=== PATIENT | male | born 1985 | race Caucasian/White ===

== ENCOUNTER 2016-09-10 06:41 | Observation (INO) | payer MEDICAID ==
--- NOTE | 2016-09-10 06:51 | ERNOTE ---
<Cristiano Schwartz - Last Filed: 09/10/16 07:22> Psychological HPI - General Source: Reports: patient Exam Limitations: Reports: intoxication - Immun/Allergies/Home Medications Allergies/Adverse Reactions: Allergies codeine Adverse Reaction (Mild, Verified 04/19/16 07:41) Vomiting Home Medications: HOME MEDICATIONS Clonazepam [Klonopin] 2 mg PO TID PRN 03/24/12 [Last Taken 10/12/14] Omeprazole [Prilosec] 40 mg PO DAILY 06/25/15 [Last Taken Unknown] lamoTRIgine [Lamictal] 150 mg PO BID 06/25/15 [Last Taken Unknown] Amitriptyline HCl [Elavil] 25 mg PO HS 02/16/16 [Last Taken Unknown] OXcarbazepine [Trileptal] 1,200 mg PO DAILY 02/16/16 [Last Taken Unknown] Zolpidem Tartrate [Ambien] 10 mg PO HS #30 tablet 02/16/16 [Last Taken Unknown] metFORMIN HCL [Glucophage] 1,000 mg PO BID #60 tablet 02/16/16 [Last Taken Unknown] Clindamycin HCl [Cleocin HCl] 300 mg PO TID #30 tab 04/19/16 [Last Taken Unknown ] Naproxen [Naprosyn] 500 mg PO BID PRN #20 tablet 04/19/16 [Last Taken Unknown] Ziprasidone HCl [Geodon] 60 mg PO BID 09/10/16 [Last Taken Unknown] - History of Present Illness Narrative: Pt brought in by EMS with report of decreased mental status due to overdose of medication mixed with excessive ETOH intake. Pt refuses to admit he was trying to harm himself Time Seen by Provider: 09/10/16 06:45 Arrived by: Reports: ambulance Onset/duration: Reports: gradual onset Intent: Reports: wants to escape Mechanism: Reports: overdose Situational Problems: Reports: significant other, other - children Associated Symptoms: Reports: depressed, angry "Rescue Factor" How did act come to attention?: Pt called law enforcement Review of Systems - Review of Systems Constitutional: Absent: recent illness EYE: Present: no symptoms reported ENT: Present: no symptoms reported Respiratory: Absent: shortness of breath Cardiology: Absent: chest pain Gastrointestinal/Abdominal: Present: nausea, vomiting Genitourinary: Present: no symptoms reported Musculoskeletal: Present: no symptoms reported Skin: Present: no symptoms reported Neurological: Present: no symptoms reported Endocrine: Present: no symptoms reported Hematologic/Lymphatic: Present: no symptoms reported Psych: Present: See HPI, depressed, emotional problems - Patient's Past Medical History Patient History - Medical: Alcohol Abuse, Bipolar, Diabetes Type 2, GERD, Obesity, Other - pt has multiple visits for pain Patient History - Cardiac/Respiratory: No pertinent hx Patient History - Cancer: No Hx of Cancer Patient History - Surgical Procedures: Appendectomy, EGD, T & A, Vasectomy, Other Patient History - Other: None - Family History Mother Family History - Medical: Bipolar Father Family History - Medical: Arthritis Sister Family History - Medical: Bipolar - Social History Living Situations: home Abuse History: No History of abuse Psych History: Hx of Bipolar Disorder Alcohol Use: occasionally Drug Use: none, other - Immunizations Immunizations Up to Date: Yes Hx Pneumococcal Vaccination: No History of Influenza Vaccine: Yes Physical Exam - Physical Exam General Appearance: Present: wd/wn, alert, irritable Eye Exam: Normal inspection: bilateral, PERRL: bilateral Ears, Nose, Throat: Present: normal ENT inspection Neck: Present: normal inspection, nontender Respiratory: Present: no respiratory distress, normal breath sounds, lungs clear Cardiovascular/Chest: Present: regular rate, rhythm, no murmur, normal peripheral pulses Gastrointestinal/Abdominal: Present: normal bowel sounds, tenderness - RUQ Back Exam: Present: normal range of motion Extremity Exam: Present: normal inspection, non-tender, normal range of motion, no edema Neurological Exam: Present: alert, other - intoxicated Skin Exam: Present: normal color, warm/dry Lymphatic Exam: Present: no adenopathy ED Progress - Progress/Reassessment Progress:: Unchanged Progress Note-Subjective: 09/10/16 07:48 Discussed the patients case with Judge Call. Explained that I feel the patient is a danger to himself and seriously mentally impaired. He agrees with a 48 hour hold. - Transfer of Care Physician Sign Out: Cristiano Schwartz Receiving Physician: Tito Power Pending Results: Labs Expected Disposition: Transfer Departure Clinical Impression: Overdose of benzodiazepine Qualifiers: Encounter type: initial encounter Injury intent: intentional self-harm Qualified Code(s): T42.4X2A - Poisoning by benzodiazepines, intentional self- harm, initial encounter Alcohol intoxication Qualifiers: Complication of substance-induced condition: uncomplicated Qualified Code(s): F10.120 - Alcohol abuse with intoxication, uncomplicated - Departure Disposition: [facility] Condition: Good <Tito Power - Last Filed: 09/10/16 09:11> Psychological HPI - Date Date of Service: 09/10/16 - General Source: Reports: patient, RN/MD - History of Present Illness Prior Treament: Denies: recently seen Physical Exam - Physical Exam General Appearance: Present: wd/wn, alert, irritable Eye Exam: Normal inspection: bilateral, PERRL: bilateral Ears, Nose, Throat: Present: normal ENT inspection Neck: Present: normal inspection, nontender Respiratory: Present: no respiratory distress Cardiovascular/Chest: Present: regular rate, rhythm. Absent: JVD Gastrointestinal/Abdominal: Present: normal bowel sounds Back Exam: Present: normal inspection, normal range of motion, no CVA tenderness Extremity Exam: Present: normal inspection Neurological Exam: Present: jacquard loom heddles tier II-XII nml as tested Skin Exam: Present: normal color Lymphatic Exam: Present: no adenopathy ED Progress - Date and Time Seen: Date and Time: 09/10/16 08:54 GCS: 15/15 Patient at the moment is calm. Patient has been commited by Core Carrier. Patient's case has been presented to Hospitalist for admission. At this point Hospitalist COOK HELPER DESSERT will consult case with Attending prior accepting case. I was informed by Nursing that ICU bed is available at [facility] at this point. Patient is in no distress. Psychiatric Facility has requested a 24hrs Observation period on a Medical [place] prior to give any intervention. 09/10/16 09:11 Hospitalist has accepted case in to the ICU. Patient has been informed of all developments. - Results and Orders Patient's Lab Results:: I have reviewed the patient's lab results. Results and Orders: CBC: WNL CMP: WNL Toxi: Positive Alcohol: Positive UA: Negative THS: Normal - Vital Signs Patient's Vital Signs:: I have reviewed the patient's vital signs. Vital Signs: Vital Signs 09/10/16 09/10/16 09/10/16 06:46 06:55 07:02 Temperature 37.1 C Pulse Rate 77 79 82 Respiratory 14 18 Rate Blood Pressure 103/76 108/75 O2 Sat by Pulse 98 100 Oximetry 09/10/16 07:45 Temperature Pulse Rate 82 Respiratory 19 Rate Blood Pressure 117/53 O2 Sat by Pulse 100 Oximetry - EKG EKG: NSR EKG read: Interp. by me EKG Comments: HR: 72, No ST Elevation, QT/QTc: Normal Plan - Plan Plan: Given Medical Observation and get cleared for Mental Health evaluation.
[2016-09-10 07:00] LABS: Hematocrit 39.4 % (42.0-52.0); Hemoglobin 13.4 gm/dL (13.5-18.0); Mean Cell Volume 84.4 fl (78-100); Mean Corpuscular Hemoglobin 28.7 pg (27-31); Mean Platelet Volume 9.6 fl (6.0-9.5); Neutrophil # 3.8 K/mm3 (1.3-6.0); Platelet Count 305 K/mm3 (150-450); Red Blood Count 4.67 M/mm3 (4.7-6.0); Red Cell Distribution Width 13.9 % (11.5-14.0); White Blood Count 7.8 K/mm3 (4.0-10.5)
--- OUTSIDE RECORDS SUMMARY | 2016-09-10 07:12 | XMS REPORT | Continuity of Care Document ---
:1985 Author Organization [facility] [employer] [facility] [place] [address] Care Team Providers Name Role Phone Phys, Not Primary Care Provider Unavailable Source Comments This disclosure is being made pursuant to the [employer] program and maynot contain all information available regarding this patient.[employer] [facility] Active Allergies and Adverse Reactions No Known Allergies Current Medications Be aware that medications may not be up to date as of this document. Alwaysverify current medications with the patient. Prescription Sig. Disp. Refills Start Date End Date Status clonazePAM (KLONOPIN) Take 1 tablet by 60 tablet 0 01/18/2012 Active 1 MG tablet mouth 2 (two) times daily. Indications: Feeling Anxious QUEtiapine Fumarate Take 2 tablets by 60 tablet 0 01/18/2012 Active (SEROQUEL) 300 MG mouth nightly. tablet lamoTRIgine (LAMICTAL) Take 1 tablet by 30 tablet 0 01/18/2012 Active 150 MG tablet mouth daily. Indications: Mood Disorder Active Problems Not on file Social History Tobacco Use Types Packs/Day Years Used Date Current Every Day Smoker 0.5 15 Tobacco Cessation:Ready to Quit: No; Counseling Given: Yes Comments: Alcohol Use Drinks/Week oz/Week Comments Yes claims he drank 13 beers last evening. Last Filed Vital Signs Vital Sign Reading Time Taken Blood Pressure 115/83 01/18/2012 8:01 AM CDT Pulse 80 01/18/2012 8:01 AM CDT Temperature 36 C (96.8 F) 01/18/2012 8:00 AM CDT Respiratory Rate 18 01/18/2012 8:00 AM CDT Height 1.78 m (5' 10.08") 01/16/2012 4:29 AM CDT Weight 115 kg (253 lb 8.5 oz) 01/16/2012 4:29 AM CDT Body Mass Index 36.3 01/16/2012 4:29 AM CDT Oxygen Saturation 99% 01/16/2012 4:29 AM CDT Plan of Care Health Maintenance Due Date Last Done Comments Tetanus/Pertussis (1 - Tdap) 2004 Retired-INFLUENZA VACCINE 01/21/2016 Results from Last 3 Months Not on file
--- OUTSIDE RECORDS SUMMARY | 2016-09-10 07:13 | XMS REPORT | Continuity of Care Document ---
:1985 Author Organization [facility] ([facility]) Address [address] [place] [address] Phone [phone] Care Team Providers Name Role Phone Adan Niño Primary Care Provider [phone] Source Comments This disclosure is being made pursuant to the Care Everywhere program, applicable federal and state laws, and may not contain all informaitonavailable regarding this patient.[facility] ([facility]) Active Allergies and Adverse Reactions Allergen Noted Date Severity Reactions Comments Codeine Sulfate 10/29/2015 Nausea & Vomiting Current Medications Prescription Sig. Disp. Refills Start Date End Date Status clonazePAM 1 mg tablet take 1 tablet (1 Active mg) by oral route 3 times per day as needed zolpiDEM 10 mg tablet take 1 tablet (10 Active mg) by oral route once daily at bedtime lamoTRIgine 150 mg tablet take 1 tablet (150 Active mg) by oral route once daily HYDROcodone-acetaminophen take 1 tablet by 03/04/2014 Active 5-325 mg per tablet oral route twice daily as needed metFORMIN 500 mg tablet take 2 tablets Active (1,000 mg) by oral route 2 times per day with morning and evening meals metoclopramide 10 mg take 1 tablet (12/07/2008 Active tablet mg) by oral route every 4 hours as needed for headache, and nausea lansoprazole 30 mg capsule take 1 capsule (30 Active mg) by oral route once daily before a meal omeprazole 40 mg enteric take 1 capsule (04/29/2014 Active coated capsule mg) by oral route once daily before a meal ziprasidone 40 mg capsule Take 40 mg by Active mouth 2 times daily. lisinopril 40 mg tablet Take 40 mg by Active mouth daily. OXcarbazepine (OXTELLAR Take 300 mg by Active XR) 300 mg XR tablet mouth daily. pregabalin (LYRICA) 300 mg Take 300 mg by Active capsule mouth daily. Active Problems Problem Noted Date Left shoulder pain 10/29/2015 Social History Tobacco Use Types Packs/Day Years Used Date Current Some Day Smoker Cigarettes 0.5 15 Smokeless Tobacco: Former User Chew, Snuff Alcohol Use Drinks/Week oz/Week Comments Yes 6 Cans of beer Last Filed Vital Signs Vital Sign Reading Time Taken Blood Pressure 133/75 10/29/2015 10:46 AM CDT Pulse 96 10/29/2015 10:46 AM CDT Temperature 36.7 C (98.1 F) 10/29/2015 10:46 AM CDT Respiratory Rate - - Height 1.753 m (5' 9") 10/29/2015 10:46 AM CDT Weight 139.9 kg (308 lb 6.8 oz) 10/29/2015 10:46 AM CDT Body Mass Index 45.53 10/29/2015 10:46 AM CDT Oxygen Saturation - - Plan of Care Health Maintenance Due Date Last Done Comments Hepatitis B Vaccine (1 of 3 - Primary Series) 1985 Tdap Vaccine 1996 Lipid Disorder Screening 09/11/2003 MMR Vaccine 09/11/2003 Td Vaccine 09/11/2003 Varicella Vaccine (1 of 2 - Adult - No Evidence of 09/11/2003 Immunity) Pneumococcal Vaccine (1 of 1 - PPSV23) 2004 Influenza Vaccine: Seasonal (#1) 12/21/2015 Results from Last 3 Months Not on file
[2016-09-10 07:22] LABS: Urine Bilirubin Negative (NEGATIVE); Urine Blood Negative /ul (NEGATIVE); Urine Ketone Negative (NEGATIVE); Urine Nitrite Negative (NEGATIVE); Urine Protein Negative (NEGATIVE); Urine Specific Gravity <=1.005 SP.GR. (1.005-1.030); Urine Urobilinogen Normal (NORMAL); Urine pH 5.5 pH (5.0-7.0)
[2016-09-10 07:22] LABS: ALT 35 U/L (19-67); AST 19 U/L (0-48); Albumin * 3.4 gm/dl (3.4-5.0); Alkaline Phosphatase * 70 U/L (50-170); Anion Gap 14.4 mmol/L (6.8-13.8); BUN/Creatinine Ratio 10.2 (9.0-21.6); Bilirubin, Total 0.2 mg/dL (0.0-1.1); Blood Urea Nitrogen 9 mg/dL (6-23); Ca. Corrected For Albumin 8.9 mg/dL (8.4-10.2); Calcium * 8.7 mg/dL (7.9-10.9); Carbon Dioxide 24.4 mmol/L (24-32.6); Chloride 107 mmol/L (97-106); Glucose * 72 mg/dL (70-110); Potassium 3.8 mmol/L (3.4-4.6); Salicylate 2.8 mg/dL (2.8-20.0); Sodium 142 mmol/L (132-142); TSH * 0.944 uIU/mL (0.358-3.74); Total Protein 7.1 gm/dL (6.2-8.2)
[2016-09-10 07:31] LABS: Urine Appearance Clear; Urine Bacteria None Seen; Urine Color Yellow; Urine RBC None Seen /hpf (0-5); Urine WBC None Seen /hpf (0-5)
[2016-09-10 07:37] LABS: Cocaine Ur Negative (NEGATIVE); Urine Barbiturate Negative (NEGATIVE); Urine Benzodiazepines Positive (NEGATIVE); Urine Opiates Negative (NEGATIVE); Urine PCP Negative (NEGATIVE); Urine THC Positive (NEGATIVE)
--- OUTSIDE RECORDS SUMMARY | 2016-09-10 08:55 | XMS REPORT | Continuity of Care Document ---
:1985 Author Organization [employer] [place] [address] Care Team Providers Name Role Phone Phys, Not Primary Care Provider Unavailable Source Comments This disclosure is being made pursuant to the [employer] program and maynot contain all information available regarding this patient.[employer] Active Allergies and Adverse Reactions No Known [...]
--- OUTSIDE RECORDS SUMMARY | 2016-09-10 08:55 | XMS REPORT | Continuity of Care Document ---
:1985 Author Organization [facility] ([facility]) Address [address] [place] [address] Phone [phone] Care Team Providers Name Role Phone Adan Niño Primary Care Provider [phone] Source Comments This disclosure is being made pursuant to the Care Everywhere program, applicable federal and state laws, and may not contain all informaitonavailable regarding this patient.[facility] ([facility]) Active Allergies and Adverse Reactions [...]
[2016-09-10] MEDS ORDERED: LORazepam 2 MG/ML DISP.SYRIN IV ONE (18:26)
[2016-09-10] MEDS ORDERED: LORazepam 2 MG/ML DISP.SYRIN IM PRN ×2 (18:27→18:30)
[2016-09-10] MEDS ORDERED: LORazepam 2 MG/ML DISP.SYRIN IV PRN (18:29)
[2016-09-10] MEDS ORDERED: ACETAMINOPHEN 325 MG TABLET PO PRN (18:30)
[2016-09-10] MEDS ORDERED: HALOPERIDOL LACTATE 5 MG/ML VIAL IM ONE (18:50)
--- NOTE | 2016-09-10 19:04 | HP ---
Chief Complaint - Chief Complaint Date of Service: 09/10/16 Time of Service: 13:35 Chief Complaint: suicide attempt; 48 hour hold; drug abuse History of Present Illness: Jonn is a 31 year old male with a long standing psychiatric history who was taken to the ER after a suicide attempt at home. Patient took an unknown amount of klonopin and "ice". patient was also drunk in the emergency room and drug toxocolgy was also positive for THC. ERP obtained a 48 hour hold on the patient was he was deemed a danger to himself and others. ERP indicated that the psychiatric facility would like medical clearance and 24 hour evaluation prior to accepting the patient. At the time of my exam, patient is sleeping and unwilling to answer any of my questions. - Patient's Past Medical History Patient History - Medical: Alcohol Abuse, Bipolar, Diabetes Type 2, GERD, Obesity, Other Patient History - Cardiac/Respiratory: Hyperlipidemia Patient History - Cancer: No Hx of Cancer Patient History - Surgical Procedures: Appendectomy, EGD, T & A, Vasectomy, Other Patient History - Other: None - Family History Mother Family History - Medical: Bipolar Family History - Cardiac/Respiratory: History Unknown Family History - Cancer: History Unknown Father Family History - Medical: Arthritis Family History - Cardiac/Respiratory: History Unknown Family History - Cancer: History Unknown Sister Family History - Medical: Bipolar Family History - Cardiac/Respiratory: History Unknown Family History - Cancer: History Unknown - Social History Living Situations: spouse Abuse History: No History of abuse Psych History: Hx of Bipolar Disorder Smoking Status: Current every day smoker Have you smoked in the past 12 months: Yes Do you dip or chew tobacco: No Patient requests Smoking Cessation Consult: No Initiate information on Smoking Cessation: No Alcohol Use: occasionally Drug Use: benzodiazepine, marijuana, other - "ice" - Immunizations Immunizations Up to Date: Yes Hx Pneumococcal Vaccination: No History of Influenza Vaccine: Yes Review Of Systems (GEN) - Review of Systems Generalized/Overall Review: Present: Fatigue - unable to obtain ROS due to patient condition. Allergies/Adverse Reactions: Allergies Allergy/AdvReac Type Severity Reaction Status Date / Time codeine AdvReac Mild Vomiting Verified 04/19/16 07:41 Home Medications: HOME MEDICATIONS Ziprasidone HCl [Geodon] 60 mg PO BID 09/10/16 [Last Taken Unknown] Albuterol Sulfate [Proair Hfa] 8.5 gm IH PRN PRN 09/11/16 [Last Taken Unknown] Clonazepam 2 mg PO TID PRN 09/11/16 [Last Taken Unknown] Lisinopril 09/11/16 [Last Taken Unknown] OXcarbazepine [Oxtellar Xr] 600 mg PO BID 09/11/16 [Last Taken Unknown] Omeprazole [Prilosec] 20 mg PO DAILY 09/11/16 [Last Taken Unknown] Zolpidem Tartrate [Ambien] 10 mg PO HS 09/11/16 [Last Taken Unknown] metFORMIN HCL [Glucophage] 1,000 mg PO BIDWM 09/11/16 [Last Taken Unknown] Exam - Exam Vital Signs: Vital Signs - Last Taken Temp 36.7 C 09/10/16 14:00 Pulse 80 09/10/16 14:00 Resp 14 09/10/16 14:00 BP 118/63 09/10/16 14:00 Pulse Ox 96 09/10/16 14:00 Constitutional: Present: Lethargic, Somnolent, Other - sleeping and maintaining his airway ENT Exam: Present: moist mucous membranes Eye Exam: bilateral eye: normal inspection Neck: Present: supple Back Exam: Present: normal inspection Breasts: Present: Exam deferred Respiratory: Present: lungs clear, normal breath sounds, no respiratory distress Cardiovascular/Chest: Present: normal peripheral pulses, regular rate, rhythm, no chest tenderness Peripheral Pulses: dorsalis-pedis (R): 2+, dorsalis-pedis (L): 2+, radial (R): 2 +, radial (L): 2+ Abdomen: Present: soft, nontender, nondistended /Rectal: Present: Exam deferred Extremity: Present: non-tender, normal inspection, no pedal edema Skin Exam: Present: normal color, warm/dry, no cyanosis Diagnostic Studies: Laboratory Results WBC 7.8 K/mm3 (4.0-10.5) 09/10/16 06:55 RBC 4.67 M/mm3 (4.7-6.0) L 09/10/16 06:55 Hgb 13.4 gm/dL (13.5-18.0) L 09/10/16 06:55 Hct 39.4 % (42.0-52.0) L 09/10/16 06:55 MCV 84.4 fl (78-100) 09/10/16 06:55 MCH 28.7 pg (27-31) 09/10/16 06:55 MCHC 34.0 g/dl (32-36) 09/10/16 06:55 RDW 13.9 % (11.5-14.0) 09/10/16 06:55 Plt Count 305 K/mm3 (150-450) 09/10/16 06:55 MPV 9.6 fl (6.0-9.5) H 09/10/16 06:55 Immature Gran % (Auto) 0.30 % (0.001-0.429) 09/10/16 06:55 Immature Gran # (Auto) 0.02 K/mm3 (0.000-0.0310) 09/10/16 06:55 Neutrophils % 49.0 % (42-75.0) 09/10/16 06:55 Lymphocytes % 38.3 % (20-51) 09/10/16 06:55 Monocytes % 8.4 % (0.0-9) 09/10/16 06:55 Eosinophils % 3.4 % (0.0-3.0) H 09/10/16 06:55 Basophils % 0.6 % (0.0-1.0) 09/10/16 06:55 Nucleated RBC % 0.0 k/mm3 (0-1) 09/10/16 06:55 Neutrophils # 3.8 K/mm3 (1.3-6.0) 09/10/16 06:55 Lymphocytes # 3.0 k/mm3 (1.5-3.5) 09/10/16 06:55 Monocytes # 0.7 k/mm3 (0.0-1.0) 09/10/16 06:55 Eosinophils # 0.3 k/mm3 (0.0-0.7) 09/10/16 06:55 Absolute Basophils 0.1 k/mm3 (0.0-0.1) 09/10/16 06:55 Sodium 142 mmol/L (132-142) 09/10/16 06:55 Plasma Sodium 142 mmol/L (130-142) 09/10/16 06:55 Potassium 3.8 mmol/L (3.4-4.6) 09/10/16 06:55 Chloride 107 mmol/L (97-106) H 09/10/16 06:55 Carbon Dioxide 24.4 mmol/L (24-32.6) 09/10/16 06:55 Anion Gap 14.4 mmol/L (6.8-13.8) H 09/10/16 06:55 BUN 9 mg/dL (6-23) 09/10/16 06:55 Creatinine 0.88 mg/dL (0.4-1.4) 09/10/16 06:55 Est GFR (Non-Af Amer) 107 mL/min (60-130) 09/10/16 06:55 BUN/Creatinine Ratio 10.2 (9.0-21.6) 09/10/16 06:55 Random Glucose 72 mg/dL (70-110) 09/10/16 06:55 Calcium 8.7 mg/dL (7.9-10.9) 09/10/16 06:55 Calcium Adj for Albumin 8.9 mg/dL (8.4-10.2) 09/10/16 06:55 Total Bilirubin 0.2 mg/dL (0.0-1.1) 09/10/16 06:55 AST 19 U/L (0-48) 09/10/16 06:55 ALT 35 U/L (19-67) 09/10/16 06:55 Alkaline Phosphatase 70 U/L (50-170) 09/10/16 06:55 Total Protein 7.1 gm/dL (6.2-8.2) 09/10/16 06:55 Albumin 3.4 gm/dl (3.4-5.0) 09/10/16 06:55 TSH 0.944 uIU/mL (0.358-3.74) 09/10/16 06:55 Urine Color Yellow 09/10/16 07:15 Urine Appearance Clear 09/10/16 07:15 Urine pH 5.5 pH (5.0-7.0) 09/10/16 07:15 Ur Specific [place] <=1.005 SP.GR. (1.005-1.030) 09/10/16 07:15 Urine Protein Negative mg/dL (NEGATIVE) 09/10/16 07:15 Urine Glucose (UA) Negative mg/dL (NEGATIVE) 09/10/16 07:15 Urine Ketones Negative mg/dL (NEGATIVE) 09/10/16 07:15 Urine Blood Negative /ul (NEGATIVE) 09/10/16 07:15 Urine Nitrate Negative (NEGATIVE) 09/10/16 07:15 Urine Bilirubin Negative mg/dl (NEGATIVE) 09/10/16 07:15 Urine Urobilinogen Normal EU/dl (NORMAL) 09/10/16 07:15 Ur Leukocyte Esterase Negative /ul (NEGATIVE) 09/10/16 07:15 Urine RBC None seen /hpf (0-5) 09/10/16 07:15 Urine WBC None seen /hpf (0-5) 09/10/16 07:15 Ur Epithelial Cells 0-5 /hpf (0-5) 09/10/16 07:15 Urine Bacteria None seen (NONE) 09/10/16 07:15 Urine Culture Comments No culture indicated 09/10/16 07:15 Salicylates 2.8 mg/dL (2.8-20.0) 09/10/16 06:55 Urine Opiates Screen Negative (NEGATIVE) 09/10/16 07:15 Acetaminophen Less than 0.2 mcg/mL (10.0-30.0) L 09/10/16 06:55 Barbiturate Screen Negative (NEGATIVE) 09/10/16 07:15 Ur Phencyclidine Scrn Negative (NEGATIVE) 09/10/16 07:15 Urine Amphetamine Positive (NEGATIVE) H 09/10/16 07:15 U Benzodiazepines Scrn Positive (NEGATIVE) H 09/10/16 07:15 Urine Cocaine Screen Negative (NEGATIVE) 09/10/16 07:15 Urine Marijuana (THC) Positive (NEGATIVE) H 09/10/16 07:15 Ethyl Alcohol 71.0 mg/dL (0.0-10.0) H 09/10/16 06:55 Assessment/Plan - Narrative Narrative: Overdose of benzo - watch O2 sats, maintain patient's airway - will need at least 24 hours to get out of patient's system. - Jessika Cai to consult on patient in the am. - 48 hour hold currently. Drug Abuse - drug screen positive. - has been seen / heard verbally aggressive and threatening towards significant other. - also has been verbally aggressive towards staff at times. - likely need inpatient rehab. Etoh intox - patient admitted to significant "lauren dee" use with benzo overdose - will augment action of benzo - watch O2 sats, maintain patient's airway Due to patient's high likelihood to possible harm himself and/or others, I agree with the 48 hour hold. In addition, he needs to be 1:1 observation for the safety of the patient and staff. - Assessment/Plan (1) Overdose of benzodiazepine Problem: Acute Qualifiers: Encounter type: initial encounter Injury intent: intentional self-harm Qualified Code(s): T42.4X2A - Poisoning by benzodiazepines, intentional self- harm, initial encounter (2) Drug abuse Problem: Acute (3) Alcohol intoxication Problem: Acute Qualifiers: Complication of substance-induced condition: with unspecified complication Qualified Code(s): F10.129 - Alcohol abuse with intoxication, unspecified
[2016-09-10] MEDS ORDERED: PANTOPRAZOLE SODIUM 40 MG TABLET.EC PO ONE (20:00)
[2016-09-10] MEDS ORDERED: ZIPRASIDONE HCL 60 MG PO SCH (21:00)
[2016-09-10] MEDS ORDERED: ZIPRASIDONE PO SCH ×2 (21:00)
[2016-09-11] MEDS ORDERED: PANTOPRAZOLE SODIUM 40 MG TABLET.EC PO SCH (07:00)
[2016-09-11] MEDS ORDERED: ZIPRASIDONE PO SCH ×2 (09:00)
--- NOTE | 2016-09-11 13:49 | PN ---
Subjective - Date and Time Seen Date: 09/11/16 Time: 11:02 Subjective Narrative: sleeping. no distress. airway and oxygen sats maintained. no aggressive behavior this am. pt unwilling to wake up to answer questions Objective - Review of Systems Generalized/Overall Review: Reports: Fatigue - unable to obtain ROS due to patient condition. - Vitals Vitals: Last Vital Signs Temp 36.4 C L 09/11/16 10:09 Pulse 66 09/11/16 11:53 Resp 14 09/11/16 10:09 BP 133/67 09/11/16 10:09 Pulse Ox 97 09/11/16 10:09 - Exam Constitutional: Present: Lethargic, Somnolent, Looks Older than stated age ENT Exam: Present: hearing grossly normal Neck: Present: supple Breasts: Present: Exam deferred Respiratory: Present: lungs clear, normal breath sounds, no respiratory distress Cardiovascular/Chest: Present: normal peripheral pulses, regular rate, rhythm Abdomen: Present: soft, nontender, nondistended /Rectal: Present: Exam deferred Extremity: Present: non-tender, normal inspection, no pedal edema Skin Exam: Present: normal color, warm/dry, no cyanosis Assessment/Plan Plan Narrative: Overdose of benzo - watch O2 sats, maintain patient's airway - await consult by Jessika Cai for recommendations - 48 hour hold currently. Drug Abuse - drug screen positive. - likely need inpatient rehab. Etoh intox - watch O2 sats, maintain patient's airway - pt very sleepy but awakens to voice. Due to patient's high likelihood to possible harm himself and/or others, I agree with the 48 hour hold. In addition, he needs to be 1:1 observation for the safety of the patient and staff. - Problems/Diagnosis (1) Overdose of benzodiazepine Problem: Acute Qualifiers: Encounter type: initial encounter Injury intent: intentional self-harm Qualified Code(s): T42.4X2A - Poisoning by benzodiazepines, intentional self- harm, initial encounter (2) Drug abuse Problem: Acute (3) Alcohol intoxication Problem: Acute Qualifiers: Complication of substance-induced condition: with unspecified complication Qualified Code(s): F10.129 - Alcohol abuse with intoxication, unspecified
[2016-09-11 14:01] VITALS: BP 130/62
--- NOTE | 2016-09-11 16:22 | CONS ---
[facility] - General Date of Service: 09/11/16 Narrative: Psychiatry consult Source: patient, family Exam Limitations: no limitations - History of Present Illness Initial Comments: Patient states that depression has been getting worse. Was missing youngest children that he does not have custody of. Was intoxicated and got in an argument with a family member and took a number of clonazepam in an attempt to overdose. Timing/Duration: getting worse Severity: moderate Modifying Factors - (Improves): Reports: medication - Not currently taking Geodon, only on a mood stabilizer. Allergies/Adverse Reactions: Allergies codeine Adverse Reaction (Mild, Verified 04/19/16 07:41) Vomiting Home Medications: Home Medications Medication Instructions Recorded Last Taken Albuterol Sulfate [Proair Hfa] 8.5 gm IH PRN PRN 09/11/16 Unknown Clonazepam 2 mg PO TID PRN 09/11/16 Unknown Lisinopril [Prinivil] 10 mg PO DAILY 09/11/16 Unknown OXcarbazepine [Oxtellar Xr] 600 mg PO BID 09/11/16 Unknown Omeprazole [Prilosec] 20 mg PO DAILY 09/11/16 Unknown Zolpidem Tartrate [Ambien] 10 mg PO HS 09/11/16 Unknown metFORMIN HCL [Glucophage] 1,000 mg PO BIDWM 09/11/16 Unknown - Patient's Past Medical History Patient History - Medical: Alcohol Abuse, Bipolar, Diabetes Type 2, GERD, Obesity, Other Patient History - Cardiac/Respiratory: Hyperlipidemia Patient History - Cancer: No Hx of Cancer Patient History - Surgical Procedures: Appendectomy, EGD, T & A, Vasectomy, Other Patient History - Other: None - Family History Mother Family History - Medical: Bipolar Family History - Cardiac/Respiratory: History Unknown Family History - Cancer: History Unknown Father Family History - Medical: Arthritis Family History - Cardiac/Respiratory: History Unknown Family History - Cancer: History Unknown Sister Family History - Medical: Bipolar Family History - Cardiac/Respiratory: History Unknown Family History - Cancer: History Unknown - Social History Living Situations: spouse Abuse History: No History of abuse Psych History: Hx of Bipolar Disorder Smoking Status: Current every day smoker Have you smoked in the past 12 months: Yes Do you dip or chew tobacco: No Patient requests Smoking Cessation Consult: No Initiate information on Smoking Cessation: No Alcohol Use: occasionally Drug Use: benzodiazepine, marijuana, other - "ice" - Immunizations Immunizations Up to Date: Yes Hx Pneumococcal Vaccination: No History of Influenza Vaccine: Yes Procedures ANESTH INJECT-SPIN CANAL (06/24/09) APPLICATION OF SPLINT (07/10/08) CLOSURE SKIN & SUBCUTANEOUS NEC (04/07/12) DRESSING OF WOUND NEC (03/15/10) ENDOSCOPIC CONTROL OF GASTRIC OR DUODENAL BLEEDING (12/18/04) ESOPHAGOGASTRODUODENOSCOPY [EGD] W/CLOSED BIOPSY (01/18/15) EXCISION OF LARGE INTESTINE, ENDO, DIAGN (06/26/15) EXCISION OF PILONID CYST (01/02/09) EXCISION OF STOMACH, PYLORUS, ENDO, DIAGN (06/26/15) HEMORRHOID PROCEDURE NEC (03/24/12) INCISION PILONIDAL SINUS (12/15/05) INJECT STEROID (06/24/09) LAPAROSCOP APPENDECTOMY (10/15/09) SPINAL CANAL INJECT NEC (06/24/09) VASECTOMY (07/02/14) Medications - Medications Current Medications: Current Medications Pantoprazole Sodium (Protonix) 40 mg PO DAILY@0700 [facility] Stop: 10/11/16 07:01 Last Admin: 09/11/16 07:13 Dose: 40 mg Ziprasidone 20 mg/ Ziprasidone (40 mg) 60 mg PO QAM [facility] Stop: 10/11/16 09:01 Last Admin: 09/11/16 08:44 Dose: 60 mg Review of Systems - Review of Systems Neurological: Present: Depressed, Emotional Problems Physical Examination - Exam Narrative: Patient states that he was intoxicated and took clonazepam in an attempt to overdose. Mood is becoming more depressed. He has not been taking Geodon, only Trileptal, Clonazepam, and Ambien for sleep. Intermittent anger. Patient denies any suicidal ideation or intent. He no longer poses a threat to himself and is cleared for discharge. Patient is to call psychiatry office tomorrow to set up a follow up appointment. Vital Signs: Vital Signs - Last Taken Temp 36.7 C 09/11/16 13:59 Pulse 64 09/11/16 13:59 Resp 14 09/11/16 13:59 BP 130/62 09/11/16 13:59 Pulse Ox 94 09/11/16 13:59 O2 Oxygen Delivery Method Room Air Constitutional: Present: Alert, Oriented x3, Cooperative Neurologic: Present: alert, normal mood/affect, oriented x 3, depressed affect Appearance: Present: appropriate appearance, appropriate insight, no memory impairment Eye contact: Present: cooperative, good eye contact, normal speech Thoughts: Present: normal thought pattern, no apparent hallucination - Continue previous home medications. He is to call psychiatry clinic tomorrow to set up a follow up appointment. - Assessments/Findings (1) Overdose of benzodiazepine Problem: Acute Qualifiers: Encounter type: initial encounter Injury intent: intentional self-harm Qualified Code(s): T42.4X2A - Poisoning by benzodiazepines, intentional self- harm, initial encounter
--- NOTE | 2016-09-11 16:51 | DS ---
(1) Overdose of benzodiazepine Problem: Acute Qualifiers: Encounter type: initial encounter Injury intent: intentional self-harm Qualified Code(s): T42.4X2A - Poisoning by benzodiazepines, intentional self- harm, initial encounter (2) Drug abuse Problem: Acute (3) Alcohol intoxication Problem: Acute Qualifiers: Complication of substance-induced condition: with unspecified complication Qualified Code(s): F10.929 - Alcohol use, unspecified with intoxication, unspecified Description of Stay: Date of admission: 09/10/16 Date of discharge: 09/11/16 Description of Stay: 09/10/16 paola is a 31 year old male with a long psychiatric history who attempted suicide by taking an unknown amount of klonopin, doing "ice", drinking etoh. presented to ER intoxicated and danger to self and other. 48 hour hold obtained by ERP. admitted to SCU to monitor pt's safety and airway. 09/11/16. pt medically stable overnight. alexis jackson with psychiatry saw patient and cleared him for discharge. ordered obtained from paddock judge to stop the 48 hour hold. pt discharged to home. Procedures Performed: none Discharge Disposition: Home self care Disposition: Home self-care Condition: Undetermined Discharge Activity: Activity as tolerated Discharge Diet: General/regular food Consultation Done:: Alexis Jackson Problem Oriented Discharge Instructions to Patient/Family: Substance Use Disorder, Drug Overdose Additional Patient Instructions (free text): Call Alexis Jackson's office on monday for a follow up appointment. You will need to follow up with her for refills of your medications. Follow up with primary care physician in 1 week. If you feel a need to harm your self or others, call 911 or go to the nearest ER. Complete Home Medications List: Complete Home Medication List: Acetaminophen [Tylenol] 650 mg PO QID PRN #0 tablet 09/11/16 Albuterol Sulfate [Proair Hfa] 8.5 gm IH PRN PRN 09/11/16 Clonazepam 2 mg PO TID PRN 09/11/16 Lisinopril [Prinivil] 10 mg PO DAILY 09/11/16 OXcarbazepine [Oxtellar Xr] 600 mg PO BID 09/11/16 Omeprazole [Prilosec] 20 mg PO DAILY 09/11/16 Ziprasidone HCl [Geodon] 60 mg PO QAM capsule 09/11/16 Zolpidem Tartrate [Ambien] 10 mg PO HS 09/11/16 metFORMIN HCL [Glucophage] 1,000 mg PO BIDWM 09/11/16
== END 2016-09-11 17:07 | disposition home or self-care (01) ==
LOC: ER 06:41 → SCU 08:49 → INTOOBSV 08:49 → MS 08:49
PROVIDERS: ADMIT Internal Medicine; ATTEND Internal Medicine
DX: T50.902A Poisoning by unspecified drugs, medicaments and biological substances, intentional self-harm, initial encounter (principal); F31.9 Bipolar disorder, unspecified; F12.10 Cannabis abuse, uncomplicated; E11.9 Type 2 diabetes mellitus without complications; F10.129 Alcohol abuse with intoxication, unspecified; E66.9 Obesity, unspecified; E78.5 Hyperlipidemia, unspecified
CPT/HCPCS: 36415; 80053; 80307; 81001; 84443; 85025; 93005; 96372; 99283; G0378; G0480; G0481

== ENCOUNTER 2016-09-29 21:26 | Emergency (ER) | payer MEDICAID ==
--- OUTSIDE RECORDS SUMMARY | 2016-09-29 21:55 | XMS REPORT | Continuity of Care Document ---
:1985 Author Organization [employer] [place] [address] Care Team Providers Name Role Phone Phys, Not Primary Care Provider Unavailable Source Comments This disclosure is being made pursuant to the [employer] program and maynot contain all information available regarding this patient.[employer] Active Allergies and Adverse Reactions No Known [...]
--- OUTSIDE RECORDS SUMMARY | 2016-09-29 21:55 | XMS REPORT | Continuity of Care Document ---
:1985 Author Organization [facility] ([facility]) Address [address] [place] [address] Phone [phone] Care Team Providers Name Role Phone Adan Niño Primary Care Provider [phone] Source Comments This disclosure is being made pursuant to the Care Everywhere program, applicable federal and state laws, and may not contain all informaitonavailable regarding this patient.[facility] ([facility]) Active Allergies and Adverse Reactions Allergen Noted [...]
--- NOTE | 2016-09-29 22:13 | ERNOTE ---
<SteveDia - Last Filed: 09/30/16 05:47> Psychological HPI - General Chief Complaint: Psychiatric Problem Source: Reports: patient Exam Limitations: Reports: no limitations - Immun/Allergies/Home Medications Allergies/Adverse Reactions: Allergies codeine Adverse Reaction (Mild, Verified 09/30/16 09:32) Vomiting Home Medications: HOME MEDICATIONS Acetaminophen [Tylenol] 650 mg PO QID PRN #0 tablet 09/11/16 [Last Taken Unknown ] Albuterol Sulfate [Proair Hfa] 8.5 gm IH PRN PRN 09/11/16 [Last Taken Unknown] Clonazepam 2 mg PO TID PRN 09/11/16 [Last Taken Unknown] Lisinopril [Prinivil] 10 mg PO DAILY 09/11/16 [Last Taken Unknown] OXcarbazepine [Oxtellar Xr] 600 mg PO BID 09/11/16 [Last Taken Unknown] Omeprazole [Prilosec] 20 mg PO DAILY 09/11/16 [Last Taken Unknown] Ziprasidone HCl [Geodon] 60 mg PO QAM capsule 09/11/16 [Last Taken Unknown] Zolpidem Tartrate [Ambien] 10 mg PO HS 09/11/16 [Last Taken Unknown] metFORMIN HCL [Glucophage] 1,000 mg PO BIDWM 09/11/16 [Last Taken Unknown] - History of Present Illness Narrative: pt is very upset and depressed and wants to kill himself and states that he has a plan. pt is adamant that he wants to be hospitalized in [place] and no facility further than [place]. Pt states "If I'm placed in any facility that' s further than [place], I'm fucking walking out of here" Time Seen by Provider: 09/29/16 21:32 Review of Systems - Review of Systems Constitutional: Present: no symptoms reported EYE: Present: no symptoms reported ENT: Present: no symptoms reported Respiratory: Present: no symptoms reported Cardiology: Present: no symptoms reported Gastrointestinal/Abdominal: Present: no symptoms reported Genitourinary: Present: no symptoms reported Musculoskeletal: Present: no symptoms reported Skin: Present: no symptoms reported Neurological: Present: See HPI - Patient's Past Medical History Patient History - Medical: Alcohol Abuse, Bipolar, Diabetes Type 2, GERD, Obesity, Other Patient History - Cardiac/Respiratory: Hyperlipidemia Patient History - Cancer: No Hx of Cancer Patient History - Surgical Procedures: Appendectomy, EGD, T & A, Vasectomy, Other Patient History - Other: None - Family History Mother Family History - Medical: Bipolar Family History - Cardiac/Respiratory: History Unknown Family History - Cancer: History Unknown Father Family History - Medical: Arthritis Family History - Cardiac/Respiratory: History Unknown Family History - Cancer: History Unknown Sister Family History - Medical: Bipolar Family History - Cardiac/Respiratory: History Unknown Family History - Cancer: History Unknown - Social History Living Situations: home Abuse History: No History of abuse Psych History: Hx of Bipolar Disorder Patient requests Smoking Cessation Consult: No Initiate information on Smoking Cessation: No Alcohol Use: occasionally Drug Use: benzodiazepine, marijuana, other - Immunizations Immunizations Up to Date: Yes Hx Pneumococcal Vaccination: No History of Influenza Vaccine: Yes Physical Exam - Physical Exam General Appearance: Present: wd/wn, alert, mild distress - tearful and angry Neck: Present: normal inspection Respiratory: Present: no respiratory distress, normal breath sounds, no accessory muscle use, chest nontender, lungs clear Cardiovascular/Chest: Present: regular rate, rhythm, no murmur, normal peripheral pulses Gastrointestinal/Abdominal: Present: normal bowel sounds, nontender, nondistended, soft Back Exam: Present: normal inspection Extremity Exam: Present: normal inspection Neurological Exam: Present: alert, oriented, other - very agitated, sad and tearful. Verbalized that two weeks ago he tried to kill himself and was admitted to ICU. He was recently released and tonight he comes in stating that he wants to and he no longer wants to live ED Progress - Date and Time Seen: Date and Time: 09/30/16 01:32 Patient became agitated and wanted to walk out when he found out he was court committed and authorities were called to assist. Pt is very angry that he was on a 48hour hold due to being a danger to himself. Pt was also given Ativan 1mg and Clonazepam 2 mg PO to help with anxiety 09/30/16 01:38 - Results and Orders Patient's Lab Results:: I have reviewed the patient's lab results. - Vital Signs Patient's Vital Signs:: I have reviewed the patient's vital signs. Vital Signs: Vital Signs 09/29/16 21:48 Temperature 36.8 C Pulse Rate 82 Respiratory 20 Rate Blood Pressure 108/66 O2 Sat by Pulse 100 Oximetry - Progress/Reassessment Chief Complaint: Psychiatric Problem - Transfer of Care Physician Sign Out: Dia Wilson Receiving Physician: Yordy Bronson Pending Results: Physician/consult arrival - placement in psychiatric facility Plan - Plan Plan: law enforcement was consulted to ED due to volatility of patient to make sure that patient and staff is safer from harm. Departure Clinical Impression: Suicidal ideations, Drug abuse, amphetamine type - Departure Disposition: Home Follow Up Needed Condition: Good Instructions: Stimulant Use Disorder-Amphetamines, Finding Treatment for Addiction Additional Instructions: FOLLOW UP WITH PLANS FOR OUTPATIENT TREATMENT OF THE DRUG PROBLEM. MANY AREA HAVE NARCOTICS ANONYMOUS PROGRAMS. FOLLOW UP WITH YOUR DOCTOR FOR YOUR MEDICAL PROBLEMS. <Yordy Bronson - Last Filed: 09/30/16 17:37> Psychological HPI - Date Date of Service: 09/30/16 ED Progress - Results and Orders Patient's Lab Results:: I have reviewed the patient's lab results. - Vital Signs Patient's Vital Signs:: I have reviewed the patient's vital signs. Vital Signs: Vital Signs 09/30/16 09:41 Temperature 35.5 C L Pulse Rate 58 L Respiratory 16 Rate Blood Pressure 105/43 O2 Sat by Pulse 97 Oximetry - Progress/Reassessment Progress:: Improved Plan - Plan Plan: THE MENTAL HEALTH WORKER WHO KNOWS THE PATIENT WELL , CAME AND SAW HIM IN THE ER ,AND DETERMINE HE IS NOT A THREAT TO HIMSELF. SHE DISCUSSED WITH HIM THE NEED TO GET INTO A DRUG REHAB PROGRAM, N.A. OR SUCH, TO ELIMINATE THAT PROBLEM WHICH IS JUST MAKING HIS SITUATION WORSE. SHE NOTIFIED THE TINNER HELPER WHO CLEARED HIM FROM THE COURT HOLD.
[2016-09-29 22:26] LABS: Hematocrit 44.6 % (42.0-52.0); Hemoglobin 15.6 gm/dL (13.5-18.0); Mean Cell Volume 82.3 fl (78-100); Mean Corpuscular Hemoglobin 28.8 pg (27-31); Mean Platelet Volume 10.1 fl (6.0-9.5); Neutrophil # 3.4 K/mm3 (1.3-6.0); Neutrophil % 44.1 % (42-75.0); Platelet Count 281 K/mm3 (150-450); Red Blood Count 5.42 M/mm3 (4.7-6.0); Red Cell Distribution Width 13.6 % (11.5-14.0); White Blood Count 7.7 K/mm3 (4.0-10.5)
[2016-09-29 22:42] LABS: Urine Bilirubin Negative (NEGATIVE); Urine Blood Negative /ul (NEGATIVE); Urine Ketone Negative (NEGATIVE); Urine Nitrite Negative (NEGATIVE); Urine Protein Negative (NEGATIVE); Urine Specific Gravity <=1.005 SP.GR. (1.005-1.030); Urine Urobilinogen Normal (NORMAL)
[2016-09-29 22:45] LABS: ALT 28 U/L (19-67); AST 10 U/L (0-48); Alkaline Phosphatase * 75 U/L (50-170); Anion Gap 13.9 mmol/L (6.8-13.8); BUN/Creatinine Ratio 10.3 (9.0-21.6); Bilirubin, Total 0.2 mg/dL (0.0-1.1); Blood Urea Nitrogen 9 mg/dL (6-23); Ca. Corrected For Albumin 9.3 mg/dL (8.4-10.2); Calcium * 8.8 mg/dL (7.9-10.9); Carbon Dioxide 26.8 mmol/L (24-32.6); Chloride 103 mmol/L (97-106); Glucose * 134 mg/dL (70-110); Potassium 3.7 mmol/L (3.4-4.6); Salicylate 3.2 mg/dL (2.8-20.0); Sodium 140 mmol/L (132-142); Total Protein 6.3 gm/dL (6.2-8.2)
[2016-09-29 22:49] LABS: Cocaine Ur Negative (NEGATIVE); Urine Barbiturate Negative (NEGATIVE); Urine Benzodiazepines Negative (NEGATIVE); Urine Opiates Negative (NEGATIVE); Urine PCP Negative (NEGATIVE); Urine THC Positive (NEGATIVE)
[2016-09-29 22:50] LABS: Urine Appearance Clear; Urine Bacteria 1+; Urine Color Yellow; Urine RBC None Seen /hpf (0-5); Urine WBC None Seen /hpf (0-5)
[2016-09-30] MEDS ORDERED: LORazepam 1 MG TABLET ONE (00:38)
[2016-09-30] MEDS: LORazepam 1 MG TABLET PO ONE (00:39)
[2016-09-30] MEDS: clonazePAM 1 MG TABLET PO SCH (01:24)
[2016-09-30] MEDS ORDERED: ZIPRASIDONE MESYLATE 20 MG VIAL IM ONE (01:51)
[2016-09-30] MEDS ORDERED: metFORMIN HCL 500 MG TABLET ONE ×2 (02:19→09:30)
[2016-09-30] MEDS: ZIPRASIDONE MESYLATE 20 MG VIAL IM ONE (02:23)
[2016-09-30] MEDS ORDERED: LISINOPRIL 10 MG TABLET ONE (09:39)
[2016-09-30] MEDS: clonazePAM 1 MG TABLET PO ONE (09:40)
[2016-09-30] MEDS: metFORMIN HCL 500 MG TABLET PO ONE (09:40)
[2016-09-30] MEDS: LISINOPRIL 10 MG TABLET PO ONE (09:40)
[2016-09-30] MEDS: ZIPRASIDONE HCL 20 MG CAPSULE PO ONE ×2 (09:41→11:21)
[2016-09-30 09:44] VITALS: BP 105/43
[2016-09-30] MEDS ORDERED: ZIPRASIDONE HCL 20 MG CAPSULE ONE (11:19)
--- NOTE | 2016-09-30 17:12 | ERNOTE ---
Psychological HPI - Date Date of Service: 09/30/16 - General Chief Complaint: Psychiatric Problem Source: Reports: patient, family, RN/MD - Immun/Allergies/Home Medications Allergies/Adverse Reactions: Allergies codeine Adverse Reaction (Mild, Verified 09/30/16 09:32) Vomiting Home Medications: HOME MEDICATIONS Acetaminophen [Tylenol] 650 mg PO QID PRN #0 tablet 09/11/16 [Last Taken Unknown ] Albuterol Sulfate [Proair Hfa] 8.5 gm IH PRN PRN 09/11/16 [Last Taken Unknown] Clonazepam 2 mg PO TID PRN 09/11/16 [Last Taken Unknown] Lisinopril [Prinivil] 10 mg PO DAILY 09/11/16 [Last Taken Unknown] OXcarbazepine [Oxtellar Xr] 600 mg PO BID 09/11/16 [Last Taken Unknown] Omeprazole [Prilosec] 20 mg PO DAILY 09/11/16 [Last Taken Unknown] Ziprasidone HCl [Geodon] 60 mg PO QAM capsule 09/11/16 [Last Taken Unknown] Zolpidem Tartrate [Ambien] 10 mg PO HS 09/11/16 [Last Taken Unknown] metFORMIN HCL [Glucophage] 1,000 mg PO BIDWM 09/11/16 [Last Taken Unknown] - History of Present Illness Narrative: Patient states that he is increasingly angry, mainly about not being able to see his oldest 2 children. States that he gets so angry, he does not know what to do. Thinks that if he has group therapy and counseling, it would help. Is also abusing methamphetamine and marijuana periodically. Time Seen by Provider: 09/29/16 21:32 Intent: Reports: prior thoughts of suicide, wants to escape Situational Problems: Reports: daughter, son Associated Symptoms: Reports: depressed, angry, agitated, hostile Prior Treament: Reports: recently hospitalized - Patient has missed 2 outpatient appointment since last hospitalization. Review of Systems - Narrative Narrative: Patient angry, irritable, and not able to cope with life stressors. States that he is tired of feeling this way. Denies any suicidal or homicidal ideation. Anger is intensified by occasional methamphetamine use. is supportive. She states that he was better since last hospital stay for intentional overdose while intoxicated. States that mood was improving but something "triggered him" to start thinking about the loss of custody of his oldest children and his anger and irritability increased. - Review of Systems Psych: Present: See HPI, depressed, emotional problems - Narrative Narrative: Is taking medications as prescribed. Has not been compliant with outpatient appointments, he claims that he missed the last two appointments due to transportation issues. - Patient's Past Medical History Patient History - Medical: Alcohol Abuse, Bipolar, Diabetes Type 2, GERD, Obesity, Other Patient History - Cardiac/Respiratory: Hyperlipidemia Patient History - Cancer: No Hx of Cancer Patient History - Surgical Procedures: Appendectomy, EGD, T & A, Vasectomy, Other Patient History - Other: None - Family History Mother Family History - Medical: Bipolar Family History - Cardiac/Respiratory: History Unknown Family History - Cancer: History Unknown Father Family History - Medical: Arthritis Family History - Cardiac/Respiratory: History Unknown Family History - Cancer: History Unknown Sister Family History - Medical: Bipolar Family History - Cardiac/Respiratory: History Unknown Family History - Cancer: History Unknown - Social History Living Situations: home Abuse History: No History of abuse Psych History: Hx of Bipolar Disorder Patient requests Smoking Cessation Consult: No Initiate information on Smoking Cessation: No Alcohol Use: occasionally Drug Use: benzodiazepine, marijuana, other - Immunizations Immunizations Up to Date: Yes Hx Pneumococcal Vaccination: No History of Influenza Vaccine: Yes Physical Exam - Physical Exam Narrative: Patient states that mood is erratic, is increasingly angry and irritable. Frustrated because he can't see oldest children. Feels guilty and worthless. Has very limited coping mechanisms. Abuses methamphetamine periodically along with marijuana. Discussed effects of methamphetamine use on the brain and that the medications will not be effective at controlling his mood or his anger as long as he continues to abuse this drug, even if he is not using on a daily basis, it is still detrimental to his mental state. Discussed treatment options , including substance abuse treatment. He feels that he would benefit from therapy but denies need to substance abuse treatment. He is not suicidal or homicidal, therefore he does not meet criteria for inpatient psychiatric care to preserve his own safety or the safety of others. is supportive. Will lift court ordered hold so he can be discharged home. Dramatic Agent Naveedman notified and psychiatric hold was lifted. General Appearance: Present: wd/wn, alert, mild distress, irritable Neurological Exam: Present: alert, oriented ED Progress - Vital Signs Vital Signs: Vital Signs 09/30/16 09:41 Temperature 35.5 C L Pulse Rate 58 L Respiratory 16 Rate Blood Pressure 105/43 O2 Sat by Pulse 97 Oximetry - Progress/Reassessment Chief Complaint: Psychiatric Problem Plan - Plan Plan: Discharge to home with instructions to continue current psychiatric medication, abstain from illicit drug use, and follow up in outpatient psychiatry. Departure Clinical Impression: Suicidal ideations - Departure
== END 2016-09-30 17:35 | disposition home or self-care (01) ==
LOC: ER 21:26
DX: R45.851 Suicidal ideations (principal); F15.10 Other stimulant abuse, uncomplicated; E11.9 Type 2 diabetes mellitus without complications; F31.70 Bipolar disorder, currently in remission, most recent episode unspecified; K21.9 Gastro-esophageal reflux disease without esophagitis
CPT/HCPCS: 36415; 80053; 80307; 81001; 85025; 93005; 96372; 99283; 99284; G0480; G0481

== ENCOUNTER 2016-12-13 23:02 | Emergency (ER) | payer MEDICAID ==
[2016-12-13 23:12] VITALS: BP 135/77
--- OUTSIDE RECORDS SUMMARY | 2016-12-13 23:31 | XMS REPORT | Clinical Summary ---
:1985 Author Organization [employer] [place] [address] Care Team Providers Name Role Phone Unavailable Primary Care Provider Unavailable Source Comments This disclosure is being made pursuant to the [employer] program and maynot contain all information available regarding this patient.[employer] Allergies No Known Allergies Current Medications Be aware that medications may not be up to date as of this document. Alwaysverify current medications with the patient. Prescription Sig. Disp. Refills Start Date End Date Status clonazePAM (KLONOPIN) Take 1 tablet by 60 tablet 0 01/18/2012 Active 1 MG mouth 2 (two) tabletIndications:Anxi times daily. ety Indications: Feeling Anxious QUEtiapine Fumarate Take 2 tablets by 60 tablet 0 01/18/2012 Active (SEROQUEL) 300 MG mouth nightly. tablet lamoTRIgine (LAMICTAL) Take 1 tablet by 30 tablet 0 01/18/2012 Active 150 MG mouth daily. tabletIndications:Mood Indications: Mood Disorder Disorder Active Problems Not on file Social History Tobacco Use Types Packs/Day Years Used Date Current Every Day Smoker 0.5 15 Tobacco Cessation:Ready to Quit: No; Counseling Given: Yes Alcohol Use Drinks/Week oz/Week Comments Yes claims he drank 13 beers last evening. Sex Assigned at Date Recorded Not on file Last Filed Vital Signs Vital Sign Reading Time Taken Blood Pressure 115/83 01/18/2012 8:01 AM CDT Pulse 80 01/18/2012 8:01 AM CDT Temperature 36 C (96.8 F) 01/18/2012 8:00 AM CDT Respiratory Rate 18 01/18/2012 8:00 AM CDT Oxygen Saturation 99% 01/16/2012 4:29 AM CDT Inhaled Oxygen Concentration - - Weight 115 kg (253 lb 8.5 oz) 01/16/2012 4:29 AM CDT Height 178 cm (5' 10.08") 01/16/2012 4:29 AM CDT Body Mass Index 36.3 01/16/2012 4:29 AM CDT Plan of Treatment Health Maintenance Due Date Last Done Comments Tetanus/Pertussis (1 - Tdap) 2004 Retired-INFLUENZA VACCINE 01/21/2016 Results Not on filefrom Last 3 Months
== END 2016-12-13 23:25 | disposition left against medical advice (07) ==
LOC: ER 23:02
DX: Z53.21 Procedure and treatment not carried out due to patient leaving prior to being seen by health care provider (principal)

== ENCOUNTER 2016-12-20 09:21 | Emergency (ER) | payer MEDICAID ==
[2016-12-20 09:32] VITALS: BP 151/91
--- OUTSIDE RECORDS SUMMARY | 2016-12-20 10:18 | XMS REPORT | Clinical Summary ---
:1985 Author Organization [employer] [place] [address] Care Team Providers Name Role Phone Unavailable Primary Care Provider Unavailable Source Comments This disclosure is being made pursuant to the [employer] program and maynot contain all information available regarding this patient.[employer] Allergies No Known Allergies Current Medications Be [...] Done Comments Tetanus/Pertussis (1 - Tdap) 2004 INFLUENZA IMMUNIZATION (#1) 2017 Results Not on filefrom Last 3 Months
--- NOTE | 2016-12-20 10:42 | ERNOTE ---
Medical Problem HPI - Narrative Date of Service: 12/20/16 - General Chief Complaint: General Assessment Time Seen by Provider: 12/20/16 10:08 Source: patient, family, RN notes reviewed, old records Exam Limitations: no limitations - Immun/Allergies/Home Medications Immunizations: IMMUNIZATION HX Immunizations Up to Date Yes History of Influenza Vaccine No Hx Pneumococcal Vaccination No Allergies/Adverse Reactions: Allergies codeine Adverse Reaction (Mild, Verified 12/20/16 09:31) Vomiting Home Medications: HOME MEDICATIONS Acetaminophen [Tylenol] 650 mg PO QID PRN #0 tablet 09/11/16 [Last Taken Unknown ] Albuterol Sulfate [Proair Hfa] 8.5 gm IH PRN PRN 09/11/16 [Last Taken Unknown] Clonazepam 2 mg PO TID PRN 09/11/16 [Last Taken Unknown] Omeprazole [Prilosec] 20 mg PO DAILY 09/11/16 [Last Taken Unknown] Ziprasidone HCl [Geodon] 60 mg PO QAM capsule 09/11/16 [Last Taken Unknown] Zolpidem Tartrate [Ambien] 10 mg PO HS 09/11/16 [Last Taken Unknown] Lisinopril [Prinivil] 10 mg PO DAILY #7 tablet 12/20/16 [Last Taken Unknown] metFORMIN HCL [Glucophage] 1,000 mg PO BIDWM #28 tablet 12/20/16 [Last Taken Unknown] - History of Present History Narrative: Jonn is a 31 year old male who presents to the ED for medication refills. He reports not taking his medications for 2 weeks. In the past 2 days he has started having a metallic taste in his mouth. He also reports being unable to sleep. He is supposed to see Jessika Cai NP in 3 days for his psych meds. He has a history of noncompliance and missing appointments. He was being seen at [facility] in [place] but reports not having enough money for gas to get there. He smokes a pack and a half a day. His reports that they routinely go to [place] on the weekends, but the clinic is of course not open then. Review of Systems - Review of Systems Constitutional: Absent: recent illness, fever EYE: Present: no symptoms reported ENT: Present: no symptoms reported Respiratory: Absent: shortness of breath, cough Cardiology: Absent: chest pain, syncope Gastrointestinal/Abdominal: Absent: vomiting, diarrhea Genitourinary: Present: no symptoms reported Musculoskeletal: Present: no symptoms reported Neurological: Absent: headache, dizziness/light-headedness Endocrine: Absent: increased thirst, increased urine, unexplained weight loss Hematologic/Lymphatic: Present: no symptoms reported Psych: Present: emotional problems - Patient's Past Medical History Patient History - Medical: Alcohol Abuse, Bipolar, Diabetes Type 2, GERD, Obesity, Other Patient History - Cardiac/Respiratory: Hyperlipidemia Patient History - Cancer: No Hx of Cancer Patient History - Surgical Procedures: Appendectomy, EGD, T & A, Vasectomy, Other Patient History - Other: None - Family History Mother Family History - Medical: Bipolar Family History - Cardiac/Respiratory: History Unknown Family History - Cancer: History Unknown Father Family History - Medical: Arthritis Family History - Cardiac/Respiratory: History Unknown Family History - Cancer: History Unknown Sister Family History - Medical: Bipolar Family History - Cardiac/Respiratory: History Unknown Family History - Cancer: History Unknown - Social History Living Situations: home Abuse History: No History of abuse Psych History: Hx of Bipolar Disorder Smoking Status: Current every day smoker Cigarettes Packs Per Day: 1.5 Have you smoked in the past 12 months: Yes Alcohol Use: occasionally Drug Use: benzodiazepine, marijuana, other - Immunizations Immunizations Up to Date: Yes Hx Pneumococcal Vaccination: No History of Influenza Vaccine: No Physical Exam - Physical Exam General Appearance: Present: wd/wn, alert, no apparent distress Respiratory: Present: no respiratory distress, no accessory muscle use Extremity Exam: Present: normal inspection, no edema Neurological Exam: Present: alert, oriented, normal mood/affect Skin Exam: Present: normal color, warm/dry ED Progress - Vital Signs Patient's Vital Signs:: I have reviewed the patient's vital signs. Vital Signs: Vital Signs 12/20/16 09:27 Temperature 37.1 C Pulse Rate 77 Respiratory 16 Rate Blood Pressure 151/91 O2 Sat by Pulse 99 Oximetry - Progress/Reassessment Chief Complaint: General Assessment Progress:: Improved Plan - Plan Plan: 7 day supply of metformin and lisinopril given. Psychiatry contacted and Jessika will give him enough of his psych meds to get him by until she sees him in 3 days. Departure - Departure Clinical Impression: Encounter for medication refill Disposition: Home Follow Up Needed Condition: Stable Additional Instructions: See Jessika on Monday as planned Get the consent for your medical records signed so you can establish with a primary care provider in the clinic Prescriptions: Lisinopril [Prinivil] 10 mg PO DAILY #7 tablet metFORMIN HCL [Glucophage] 1,000 mg PO BIDWM #28 tablet
== END 2016-12-20 10:33 | disposition home or self-care (01) ==
LOC: ER 09:21
DX: Z76.0 Encounter for issue of repeat prescription (principal); F17.210 Nicotine dependence, cigarettes, uncomplicated

== ENCOUNTER 2017-01-28 10:16 | Emergency (ER) | payer MEDICAID ==
[2017-01-28] MEDS ORDERED: NORMAL SALINE 1,000 ML IV ONE (10:38)
[2017-01-28] MEDS ORDERED: ONDANSETRON HCL/PF 2 MG/ML VIAL IV ONE (10:39)
[2017-01-28] MEDS ORDERED: KETOROLAC TROMETHAMINE 30 MG/ML VIAL IV ONE (10:39)
[2017-01-28 10:56] LABS: Hematocrit 45.5 % (42.0-52.0); Hemoglobin 15.5 gm/dL (13.5-18.0); Mean Cell Volume 85.5 fl (78-100); Mean Corpuscular Hemoglobin 29.1 pg (27-31); Mean Corpuscular Hgb Conc 34.1 g/dl (32-36); Mean Platelet Volume 9.9 fl (6.0-9.5); Neutrophil # 3.9 K/mm3 (1.3-6.0); Neutrophil % 59.3 % (42-75.0); Platelet Count 261 K/mm3 (150-450); Red Blood Count 5.32 M/mm3 (4.7-6.0); Red Cell Distribution Width 12.9 % (11.5-14.0); White Blood Count 6.6 K/mm3 (4.0-10.5)
--- NOTE | 2017-01-28 11:01 | ERNOTE ---
Abdominal HPI - Narrative Date of Service: 01/28/17 - General Chief Complaint: Nausea/Vomiting Time Seen by Provider: 01/28/17 10:24 Source: patient, family Exam Limitations: no limitations - Immun/Allergies/Home Medications Immunizatons: IMMUNIZATION HX Immunizations Up to Date Yes History of Influenza Vaccine No Hx Pneumococcal Vaccination No Allergies/Adverse Reactions: Allergies codeine Adverse Reaction (Mild, Verified 01/28/17 10:30) Vomiting Home Medications: HOME MEDICATIONS Acetaminophen [Tylenol] 650 mg PO QID PRN #0 tablet 09/11/16 [Last Taken Unknown ] Albuterol Sulfate [Proair Hfa] 8.5 gm IH PRN PRN 09/11/16 [Last Taken Unknown] Clonazepam 2 mg PO TID PRN 09/11/16 [Last Taken Unknown] Omeprazole [Prilosec] 20 mg PO DAILY 09/11/16 [Last Taken Unknown] Ziprasidone HCl [Geodon] 60 mg PO QAM capsule 09/11/16 [Last Taken Unknown] Zolpidem Tartrate [Ambien] 10 mg PO HS 09/11/16 [Last Taken Unknown] Lisinopril [Prinivil] 10 mg PO DAILY #7 tablet 12/20/16 [Last Taken Unknown] metFORMIN HCL [Glucophage] 1,000 mg PO BIDWM #28 tablet 12/20/16 [Last Taken Unknown] - History of Present Illness Narrative: Patient states over the past week he has not felt generally well. No specific symptoms reported. Yesterday started with N/V with no reported diarrhea. Generalized nonspecific abdominal aching described as more nausea than pain. Denies a fever but did have chills last evening. Date (Duration): 01/27/17 Timing: intermittent Quality: moderate Activities at Onset: none Modifying Factors - (Improves): Present: rest Modifying Factors - (Worsens): Present: movement Associated Symptoms: Present: nausea, vomiting, other - Dizziness Review of Systems - Narrative Narrative: Denies any CP, dyspnea. No dysuria. - Review of Systems Constitutional: Present: chills, decreased activity level, malaise, other EYE: Present: no symptoms reported, other ENT: Present: no symptoms reported, other Respiratory: Present: no symptoms reported, other Cardiology: Present: no symptoms reported, other Gastrointestinal/Abdominal: Present: nausea, other, vomiting - Denies abdominal pain but rather generalized abdominal aching/nausea Genitourinary: Present: no symptoms reported, other Musculoskeletal: Present: other - generalized muscle aches Skin: Present: no symptoms reported, other Neurological: Present: dizziness/light-headedness, other Endocrine: Present: no symptoms reported, other - States sugars are well controlled with metformin Hematologic/Lymphatic: Present: no symptoms reported, other Psych: Present: no symptoms reported, other - Patient's Past Medical History Patient History - Medical: Alcohol Abuse, Bipolar, Diabetes Type 2, GERD, Obesity, Other Patient History - Cardiac/Respiratory: Hyperlipidemia Patient History - Cancer: No Hx of Cancer Patient History - Surgical Procedures: Appendectomy, EGD, T & A, Vasectomy, Other Patient History - Other: None - Family History Mother Family History - Medical: Bipolar Family History - Cardiac/Respiratory: History Unknown Family History - Cancer: History Unknown Father Family History - Medical: Arthritis Family History - Cardiac/Respiratory: History Unknown Family History - Cancer: History Unknown Sister Family History - Medical: Bipolar Family History - Cardiac/Respiratory: History Unknown Family History - Cancer: History Unknown - Social History Living Situations: home Abuse History: No History of abuse Psych History: Hx of Bipolar Disorder Smoking Status: Current every day smoker Alcohol Use: occasionally Drug Use: benzodiazepine, marijuana, other - Immunizations Immunizations Up to Date: Yes Hx Pneumococcal Vaccination: No History of Influenza Vaccine: No Physical Exam - Physical Exam General Appearance: Present: wd/wn, alert, mild distress Head Exam: Present: normal inspection Eye Exam: Normal inspection: bilateral, PERRL: bilateral, EOMI: bilateral Ears, Nose, Throat: Present: normal pharynx Neck: Present: normal inspection, nontender, supple Respiratory: Present: no respiratory distress, normal breath sounds, no accessory muscle use, lungs clear Cardiovascular/Chest: Present: regular rate, rhythm, no murmur, normal peripheral pulses Peripheral Pulses: N=norm/S=strong/W=weak/B=bound/A=absent: Radial (R): Normal, Radial (L): Normal Gastrointestinal/Abdominal: Present: normal bowel sounds, nondistended, soft, no organomegaly, other - generalized Back Exam: Present: normal range of motion, no CVA tenderness, no vertebral tenderness Extremity Exam: Present: normal inspection, normal range of motion Neurological Exam: Present: alert, oriented, normal mood/affect, no motor/ sensory deficits Skin Exam: Present: normal color, warm/dry ED Progress - Results and Orders Patient's Lab Results:: I have reviewed the patient's lab results. - Vital Signs Patient's Vital Signs:: I have reviewed the patient's vital signs. Vital Signs: Vital Signs 01/28/17 10:24 Temperature 36.3 C L Pulse Rate 77 Respiratory 12 Rate Blood Pressure 119/73 O2 Sat by Pulse 95 Oximetry - Progress/Reassessment Chief Complaint: Nausea/Vomiting Progress:: Re-examined Progress Note-Subjective: 01/28/17 11:23 No longer nauseated w/out muscle aches. States he is feeling much better and is ready to go home. Denies any pain. 01/28/17 11:29 01/28/17 11:32 Plan - Plan Plan: Discharge to home Departure - Departure Clinical Impression: Nausea & vomiting Disposition: Home self-care Condition: Good Instructions: Nausea, Adult Additional Instructions: No acute findings. Likely viral illness that will resolve over time. Continue drinking plenty of fluids and monitor blood sugars. Tylenol 650mg PO alternating with ibuprofen 600mg every 6 hrs with food as needed. Follow up with family provider for re-evaluation in 2-3 days. Return to ER if symptoms worsen or you do not continue to improve.
[2017-01-28 11:03] LABS: Anion Gap 12.9 mmol/L (6.8-13.8); BUN/Creatinine Ratio 8.8 (9.0-21.6); Calcium * 9.1 mg/dL (7.9-10.9); Carbon Dioxide 29.3 mmol/L (24-32.6); Estimated Creat Clear 108.3; Potassium 4.2 mmol/L (3.4-4.6)
[2017-01-28] MEDS ORDERED: ONDANSETRON HCL/PF 2 MG/ML VIAL ONE (11:07)
[2017-01-28] MEDS ORDERED: KETOROLAC TROMETHAMINE 30 MG/ML VIAL ONE (11:07)
[2017-01-28] MEDS ORDERED: ONDANSETRON 4 MG TAB.RAPDIS PO ONE (11:09)
[2017-01-28] MEDS ORDERED: KETOROLAC TROMETHAMINE 60 MG/2 ML VIAL IM ONE ×2 (11:09→11:12)
[2017-01-28] MEDS ORDERED: ONDANSETRON 4 MG TAB.RAPDIS ONE (11:12)
[2017-01-28 11:30] VITALS: BP 118/68
[2017-01-28 11:34] LABS: Urine Appearance Slightly Cloudy; Urine Bilirubin Negative (NEGATIVE); Urine Blood Negative /ul (NEGATIVE); Urine Color Yellow; Urine Ketone Negative (NEGATIVE); Urine Specific Gravity 1.015 SP.GR. (1.005-1.030); Urine pH 7.5 pH (5.0-7.0)
[2017-01-28 11:35] LABS: Urine Bacteria None Seen; Urine Nitrite Negative (NEGATIVE); Urine Protein 15 mg/dL (NEGATIVE); Urine RBC None Seen /hpf (0-5); Urine Urobilinogen Normal (NORMAL); Urine WBC 0-5 /hpf (0-5)
== END 2017-01-28 11:33 | disposition home or self-care (01) ==
LOC: ER 10:16
DX: R11.2 Nausea with vomiting, unspecified (principal); K21.9 Gastro-esophageal reflux disease without esophagitis; F31.9 Bipolar disorder, unspecified; F17.200 Nicotine dependence, unspecified, uncomplicated

== ENCOUNTER 2017-02-02 21:16 | Emergency (ER) | payer MEDICAID ==
[2017-02-02 22:43] VITALS: BP 112/56
[2017-02-02] MEDS ORDERED: hydrOXYzine PAMOATE 25 MG CAPSULE PO ONE (22:51)
--- NOTE | 2017-02-02 22:53 | ERNOTE ---
Psychological HPI - General Chief Complaint: Anxiety Source: Reports: patient Exam Limitations: Reports: no limitations - Immun/Allergies/Home Medications Allergies/Adverse Reactions: Allergies codeine Adverse Reaction (Mild, Verified 02/02/17 21:27) Vomiting Home Medications: HOME MEDICATIONS Omeprazole [Prilosec] 20 mg PO DAILY 09/11/16 [Last Taken Unknown] Ziprasidone HCl [Geodon] 60 mg PO QAM capsule 09/11/16 [Last Taken Unknown] Zolpidem Tartrate [Ambien] 10 mg PO HS 09/11/16 [Last Taken Unknown] Alprazolam 2 mg PO TID 02/02/17 [Last Taken Unknown] metFORMIN HCL [Glucophage] 500 mg PO BIDWM 02/02/17 [Last Taken Unknown] - History of Present Illness Narrative: Pt had sudden onset of palpitations and numbness over his whole body. He was brought by EMS and was feeling much better even by the time he arrived. Time Seen by Provider: 02/02/17 22:02 Arrived by: Reports: ambulance Onset/duration: Reports: sudden onset Review of Systems - Review of Systems Constitutional: Present: fatigue. Absent: recent illness EYE: Present: no symptoms reported ENT: Present: no symptoms reported Respiratory: Present: shortness of breath Cardiology: Absent: chest pain Gastrointestinal/Abdominal: Present: nausea. Absent: vomiting Genitourinary: Absent: frequency, pain Musculoskeletal: Absent: back pain, muscle pain Skin: Absent: rash Neurological: Absent: headache Endocrine: Absent: excessive sweating, flushing Hematologic/Lymphatic: Present: no symptoms reported Psych: Present: anxiety - Patient's Past Medical History Patient History - Medical: Alcohol Abuse, Bipolar, Diabetes Type 2, GERD, Obesity, Other Patient History - Cardiac/Respiratory: Hyperlipidemia Patient History - Cancer: No Hx of Cancer Patient History - Surgical Procedures: Appendectomy, EGD, T & A, Vasectomy, Other Patient History - Other: None - Family History Mother Family History - Medical: Bipolar Family History - Cardiac/Respiratory: History Unknown Family History - Cancer: History Unknown Father Family History - Medical: Arthritis Family History - Cardiac/Respiratory: History Unknown Family History - Cancer: History Unknown Sister Family History - Medical: Bipolar Family History - Cardiac/Respiratory: History Unknown Family History - Cancer: History Unknown - Social History Living Situations: home Abuse History: No History of abuse Psych History: Hx of Bipolar Disorder, Current tx/ever been on anti-depressants or anti-anxiety meds Smoking Status: Current every day smoker Alcohol Use: occasionally Drug Use: benzodiazepine, marijuana, other - Immunizations Immunizations Up to Date: Yes Hx Pneumococcal Vaccination: No History of Influenza Vaccine: Yes Psychological Exam - Exam General Appearance: Present: wd/wn, alert, no apparent distress Head Exam: Present: normal inspection, no evidence of injury Neurological: Present: alert, normal mood/affect, calm, pallet sorter II-XII nml as tested Thoughts/Hallucinations: Present: normal thought pattern, no apparent hallucination Behavior/Eye Contact/Speech: Present: cooperative, good eye contact, normal speech Eye Exam: Normal inspection: bilateral, PERRL: bilateral, EOMI: bilateral Ears, Nose, Throat: Present: normal ENT inspection, normal pharynx Neck: Present: normal inspection, nontender, supple Respiratory: Present: no respiratory distress, normal breath sounds, lungs clear Cardiovascular/Chest: Present: regular rate, rhythm, no murmur, normal peripheral pulses Gastrointestinal/Abdominal: Present: normal bowel sounds, nontender, nondistended, soft Back Exam: Present: normal inspection, normal range of motion, no CVA tenderness , no vertebral tenderness Extremity Exam: Present: normal inspection, non-tender, no edema Skin Exam: Present: normal color, warm/dry, no cyanosis Lymphatic Exam: Present: no adenopathy ED Progress - Vital Signs Vital Signs: Vital Signs 02/02/17 02/02/17 02/02/17 21:18 22:12 22:42 Temperature 36.4 C L Pulse Rate 89 82 87 Respiratory 20 12 12 Rate Blood Pressure 136/69 112/43 112/56 O2 Sat by Pulse 98 97 99 Oximetry - Progress/Reassessment Chief Complaint: Anxiety Progress:: Improved Departure Clinical Impression: Anxiety - Departure Disposition: Home Follow Up Needed Condition: Good Instructions: Panic Attacks, [id number] Additional Instructions: talk to your regular doctor about the loss of your medications.
[2017-02-02] MEDS ORDERED: hydrOXYzine PAMOATE 25 MG CAPSULE ONE (22:54)
== END 2017-02-02 22:57 | disposition home or self-care (01) ==
LOC: ER 21:16
DX: F41.9 Anxiety disorder, unspecified (principal); F17.200 Nicotine dependence, unspecified, uncomplicated; F31.9 Bipolar disorder, unspecified; E11.9 Type 2 diabetes mellitus without complications; K21.9 Gastro-esophageal reflux disease without esophagitis

== ENCOUNTER 2018-04-07 22:09 | Observation (INO) ==
[2018-04-07 22:29] LABS: Urine Bilirubin Negative (NEGATIVE); Urine Blood Negative /ul (NEGATIVE); Urine Ketone 5 mg/dL (NEGATIVE); Urine Nitrite Negative (NEGATIVE); Urine Protein 30 mg/dL (NEGATIVE); Urine Specific Gravity >=1.030 SP.GR. (1.005-1.030); Urine Urobilinogen Normal (NORMAL)
--- NOTE | 2018-04-07 22:40 | ERNOTE ---
Medical Problem HPI - Narrative Date of Service: 04/07/18 - General Chief Complaint: Drug Overdose Time Seen by Provider: 04/07/18 22:17 Source: patient, family Exam Limitations: intoxication - Immun/Allergies/Home Medications Immunizations: IMMUNIZATION HX Immunizations Up to Date Yes History of Influenza Vaccine Yes Hx Pneumococcal Vaccination No Allergies/Adverse Reactions: Allergies codeine Adverse Reaction (Mild, Verified 04/07/18 23:00) Vomiting Home Medications: HOME MEDICATIONS mirtazapine 30 mg tablet 30 mg PO HS #30 tab 01/04/18 [Last Taken Unknown] Zolpidem Tartrate [Ambien] 10 mg PO HS PRN 04/02/18 [Last Taken Unknown] Pantoprazole Sodium 40 mg PO DAILY 04/07/18 [Last Taken Unknown] Prazosin HCl [Minipress] 1 mg PO HS 04/07/18 [Last Taken Unknown] Ziprasidone HCl [Geodon] 60 mg PO HS 04/07/18 [Last Taken Unknown] hydrOXYzine PAMOATE [Hydroxyzine Pamoate] 25 mg PO TID PRN 04/07/18 [Last Taken Unknown] traMADol HCL [Ultram] 100 mg PO Q8H PRN 04/07/18 [Last Taken 04/07/18 21:00 40 tab] - History of Present History Narrative: 32 yr old male brought from home by ems , family called , pt,took 40 Tramadol.alcohol,4 Xanaxand his regular meds,states he was depressed over his girlfriend and exwas trying to hurt self Timing: constant Severity: moderate Review of Systems - Review of Systems Constitutional: Present: no symptoms reported EYE: Present: other - 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 ENT: Present: no symptoms reported, other - old trach site Respiratory: Present: no symptoms reported Cardiology: Present: no symptoms reported Gastrointestinal/Abdominal: Present: no symptoms reported Musculoskeletal: Present: no symptoms reported Skin: Present: no symptoms reported Neurological: Present: emotional problems Endocrine: Present: no symptoms reported Psych: Present: anxiety, depressed All Other Systems: All systems neg except as marked Medical History (Last Reviewed 04/07/18 @ 23:00 by Fela Kunz RN) Anxiety History of facial fracture History of rib fracture Neck fracture Presence of tracheostomy Surgical History: Surgical History (Last Reviewed 04/07/18 @ 23:00 by Fela Ze, RN) History of back surgery History of orthopedic surgery Family History: Family History (This Medical Record has been edited. Action required.) Other No pertinent family history Social History: Preferred Language Syriac Smoking Status Current every day smoker Abuse History No History of abuse Psych History Currently on Meds,Hx of Anxiety,Hx of Depression ,Hx of Bipolar Disorder Alcohol Use occasionally Drug Use none (This Medical Record has been edited. Action required.) No Social History Section defined Physical Exam - Physical Exam General Appearance: Present: wd/wn, alert, other - intoxicated Head Exam: Present: normal inspection, other - old scar mid forehead. Absent: no evidence of injury Eye Exam: Normal inspection: left - enucleated Ears, Nose, Throat: Present: normal ENT inspection, other - old trachsite Neck: Present: normal inspection Respiratory: Present: no respiratory distress, normal breath sounds Cardiovascular/Chest: Present: regular rate, rhythm Peripheral Pulses: N=norm/S=strong/W=weak/B=bound/A=absent: Carotid (R): Normal, Carotid (L): Normal Gastrointestinal/Abdominal: Present: normal bowel sounds, nontender, nondistended Back Exam: Present: normal inspection Extremity Exam: Present: normal inspection, normal except - Neurological Exam: Present: alert, no motor/sensory deficits, other - intoxicated Skin Exam: Present: normal color, warm/dry ED Progress - Results and Orders Patient's Lab Results:: I have reviewed the patient's lab results. - Vital Signs Patient's Vital Signs:: I have reviewed the patient's vital signs. Vital Signs: Vital Signs 04/07/18 22:10 Temperature 37.0 C Pulse Rate 79 Respiratory Rate 14 O2 Sat by Pulse Oximetry 98 - EKG EKG read: Interp. by wi EKG Comments: hr 80 sinus - X-Ray X-Ray #1 X-Ray: chest Interpretation: Interp. by me X-ray Comments: nad - Progress/Reassessment Chief Complaint: Drug Overdose Progress:: Unchanged Progress Note-Subjective: 04/07/18 23:50 patient will be admitted to ICU for Tramadol OD and suicidae attempt - Transfer of Care Expected Disposition: Admit Plan - Plan Plan: patient to be admitted to ICU Dr Laboy will admit Departure Clinical Impression: Overdose of medication, Suicidal overdose - Departure Disposition: Short Term Hospital Inpatient Condition: Fair Referrals: John Kendrick MD [Primary Care Provider] -
[2018-04-07 22:43] LABS: Hematocrit 42.9 % (42.0-52.0); Mean Corpuscular Hemoglobin 26.8 pg (27-31); Mean Corpuscular Hgb Conc 32.6 g/dl (32-36); Mean Platelet Volume 9.2 fl (8-11.3); Neutrophil # 4.8 K/mm3 (1.3-6.0); Platelet Count 327 K/mm3 (150-450); Red Blood Count 5.23 M/mm3 (4.7-6.0); Red Cell Distribution Width 14.3 % (11.5-14.0); White Blood Count 9.7 K/mm3 (4.0-10.5)
[2018-04-07 22:43] LABS: Cocaine Ur Negative (NEGATIVE); Urine Barbiturate Negative (NEGATIVE); Urine Opiates Negative (NEGATIVE); Urine PCP Negative (NEGATIVE); Urine THC Negative (NEGATIVE)
[2018-04-07 22:44] LABS: Urine Benzodiazepines Positive (NEGATIVE)
[2018-04-07 23:01] LABS: Urine Appearance Clear (CLEAR); Urine Color Yellow
[2018-04-07 23:02] LABS: Urine Bacteria None Seen; Urine Hyaline Cast 0-5 /LPF; Urine RBC None Seen /hpf (0-5); Urine WBC None Seen /hpf (0-5)
[2018-04-07 23:11] LABS: ALT 30 U/L (19-67); AST 28 U/L (0-48); Albumin * 3.7 gm/dl (3.4-5.0); Alkaline Phosphatase * 101 U/L (50-170); Anion Gap 12.6 mmol/L (6.8-13.8); BUN/Creatinine Ratio 7.4 (9.0-21.6); Bilirubin, Total 0.2 mg/dL (0.0-1.1); Blood Urea Nitrogen 12 mg/dL (6-23); Ca. Corrected For Albumin 8.4 mg/dL (8.4-10.2); Calcium * 8.5 mg/dL (7.9-10.9); Carbon Dioxide 26.8 mmol/L (24-32.6); Chloride 102 mmol/L (97-106); Glucose * 79 mg/dL (70-110); Potassium 4.4 mmol/L (3.4-4.6); Sodium 137 mmol/L (132-142); Total Protein 7.5 gm/dL (6.2-8.2)
[2018-04-07] MEDS ORDERED: ONDANSETRON HCL/PF 2 MG/ML VIAL IV ONE (23:54)
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
[2018-04-08] MEDS ORDERED: PANTOPRAZOLE SODIUM 40 MG TABLET.EC PO SCH (09:00)
--- NOTE | 2018-04-08 11:37 | DS ---
Description of Stay: 32 year old male placed into the [facility] following a suicide attempt by OD on tramadol and xanax. Pt apparently had taken "a whole bottle of tramadol" which had close to 40 tablets left. He also took a "few xanax" and had been drinking. His toxicology report was + for alcohol and benzos. He states that he had issues "with the women in his life" but he denied any suicidal ideations at this time and states that it was likely done due to his drinking. While here he showed no signs of serotonin syndrome at all. He was comfortable and actually asking for pain medication for his back. He was monitored close to 15 hrs, no seizure activity. His vitals were stable overall he did well. He was eating and drinking prior to his discharge. He had a QTc of 415 in the ER, was 407 7 months earlier. He also had an elevated creatinine at 1.6 (baseline of 1.0). Discussed rechecking this tomorrow in the Family medicine clinic. He has no hx of renal disease and it is likely pre-renal (as it was last time it was elevated). He did not want any lab work done to confirm this today. Advised that he drink plenty of water after discharge. He has a psychiatrist in [facility] that we will be sending this record to if his mother knows the name of the Doctor. He states that he is scheduled to follow up with them soon for medication refills. Will get the name from his mother and set up a sooner follow up appointment. I advised that he stop his tramadol until he follows up with the providers who give it. He currently is out and I will not be refilling these at this time. Procedures Performed: none Results and Findings: Lab Pending Results 04/07/18 22:22: Urine Opiates Screen Negative, Barbiturate Screen Negative, Ur Phencyclidine Scrn Negative, Urine Amphetamine Negative, U Benzodiazepines Scrn Positive H, Urine Cocaine Screen Negative, Urine Marijuana (THC) Negative 04/07/18 22:40: Urine Color Yellow, Urine Appearance Clear, Urine pH 6.0, Ur Specific [place] >=1.030, Urine Protein 30 H, Urine Glucose (UA) Negative, Urine Ketones 5, Urine Blood Negative, Urine Nitrate Negative, Urine Bilirubin Negative, Prot Sulfosalicylic Acd 1+, Urine Urobilinogen Normal, Ur Leukocyte Esterase Negative, Urine RBC None seen, Urine WBC None seen, Ur Epithelial Cells None seen, Urine Bacteria None seen, Hyaline Casts 0-5 H, Urine Culture Comments No culture indicated 04/07/18 22:40: WBC 9.7, RBC 5.23, Hgb 14.0, Hct 42.9, MCV 82.0, MCH 26.8 L, MCHC 32.6, RDW 14.3 H, Plt Count 327, MPV 9.2, Immature Gran % (Auto) 0.40, Immature Gran # (Auto) 0.04 H, Neutrophils % 50.0, Lymphocytes % 39.5, Monocytes % 8.4, Eosinophils % 1.0, Basophils % 0.7, Nucleated RBC % 0.0, Neutrophils # 4.8, Lymphocytes # 3.81 H, Monocytes # 0.8, Eosinophils # 0.1, Absolute Basophils 0.1 04/07/18 22:40: Sodium 137, Plasma Sodium 137, Potassium 4.4 D, Chloride 102, Carbon Dioxide 26.8, Anion Gap 12.6, BUN 12, Creatinine 1.63 H D, Est GFR (Non- Af Amer) 52 L D, BUN/Creatinine Ratio 7.4 L, Random Glucose 79, Calcium 8.5, Calcium Adj for Albumin 8.4, Total Bilirubin 0.2, AST 28, ALT 30, Alkaline Phosphatase 101, Total Protein 7.5, Albumin 3.7, Salicylates 3.0, Acetaminophen Less than 0.2 L, Ethyl Alcohol 96.0 H Discharge Location: Home Disposition: Home self-care Condition: Fair Discharge Activity: Activity as tolerated Discharge Diet: Consistent carbs Referrals: John Kendrick MD [Primary Care Provider] - Additional Patient Instructions (free text): Follow up with the family medicine outpatient clinic for repeat renal blood work (creatinine and GRF) Complete Home Medications List: Complete Home Medication List: mirtazapine 30 mg tablet 30 mg PO HS #30 tab 01/04/18 Zolpidem Tartrate [Ambien] 10 mg PO HS PRN 04/02/18 Pantoprazole Sodium 40 mg PO DAILY 04/07/18 Prazosin HCl [Minipress] 1 mg PO HS 04/07/18 Ziprasidone HCl [Geodon] 60 mg PO HS 04/07/18 hydrOXYzine PAMOATE [Hydroxyzine Pamoate] 25 mg PO TID PRN 04/07/18
[2018-04-08 13:26] VITALS: BP 119/60
[2018-04-08] MEDS ORDERED: PRAZOSIN HCL 1 MG CAPSULE PO SCH (21:00)
--- NOTE | 2018-04-11 17:59 | HP ---
Chief Complaint - Chief Complaint Date of Service: 04/08/18 Time of Service: 07:00 Chief Complaint: Overdose on pain medication History of Present Illness: 32 year old male placed into the [facility] following a suicide attempt by OD on tramadol and xanax. Pt apparently had taken "a whole bottle of tramadol" which had close to 40 tablets left. He also took a "few xanax" and had been drinking. His toxicology report was + for alcohol and benzos. He states that he had issues "with the women in his life" but he denied any suicidal ideations at this time of interview and states that it was likely done due to his drinking. He denied SOB, seizures. He endorses back pain Medical History (Last Updated 04/08/18 @ 02:08 by Fatuma Smyth RN) Anxiety Bipolar disorder History of facial fracture History of rib fracture Hypertension Neck fracture PTSD (post-traumatic stress disorder) Presence of tracheostomy Surgical History: Surgical History (Last Reviewed 04/08/18 @ 02:07 by Fatuma Smyth RN) History of back surgery History of orthopedic surgery Family History: Family History (Last Updated 04/08/18 @ 02:03 by Fatuma Smyth RN) Father No pertinent family history Failed total knee arthroplasty Mother No pertinent family history Social History: Patient Lives/Resources Home Utilized Preferred Language Urdu Do you have any mu-ism or No cultural preference? Smoking Status Current every day smoker Have you smoked in the past 12 Yes months Do you dip or chew tobacco No Abuse History No History of abuse Psych History Currently on Meds,Hx of Anxiety,Hx of Depression ,Hx of Bipolar Disorder Alcohol Use occasionally Drug Use none (This Medical Record has been edited. Action required.) No Social History Section defined Review Of Systems (GEN) - Review of Systems Generalized/Overall Review: Present: Fatigue - sleepy EENTM: Present: No Symptoms Reported Respiratory: Present: No Symptoms Reported. Absent: Shortness of Breath Cardiac: Present: No Symptoms Reported Abdominal: Present: No Symptoms Reported Genitourinary: Present: No Symptoms Reported Musculoskeletal: Present: Back Pain Neurological: Present: No Symptoms Reported Skin: Present: No Symptoms Reported Endocrine: Present: No Symptoms Reported Immunizations: IMMUNIZATION HX Immunizations Up to Date Yes History of Influenza Vaccine Yes Hx Pneumococcal Vaccination No Allergies/Adverse Reactions: Allergies Allergy/AdvReac Type Severity Reaction Status Date / Time codeine AdvReac Mild Vomiting Verified 11/17/18 23:00 Home Medications: HOME MEDICATIONS mirtazapine 30 mg tablet 30 mg PO HS #30 tab 01/04/18 [Last Taken Unknown] Zolpidem Tartrate [Ambien] 10 mg PO HS PRN 04/02/18 [Last Taken Unknown] Pantoprazole Sodium 40 mg PO DAILY 04/07/18 [Last Taken Unknown] Prazosin HCl [Minipress] 1 mg PO HS 04/07/18 [Last Taken Unknown] Ziprasidone HCl [Geodon] 60 mg PO HS 04/07/18 [Last Taken Unknown] hydrOXYzine PAMOATE [Hydroxyzine Pamoate] 25 mg PO TID PRN 04/07/18 [Last Taken Unknown] Alprazolam 2 mg PO TID PRN 04/08/18 [Last Taken Unknown] Ibuprofen 800 mg PO Q6H PRN 04/08/18 [Last Taken Unknown] traMADol HCL [Tramadol HCl] 100 mg PO Q8H PRN 04/08/18 [Last Taken Unknown] traZODone HCL [Trazodone HCl] 100 mg PO HS 04/08/18 [Last Taken Unknown] Exam - Exam Vital Signs: Vital Signs - Last Taken Temp 36.2 C 04/08/18 13:22 Pulse 69 04/08/18 13:22 Resp 16 04/08/18 13:22 BP 119/60 04/08/18 13:22 Pulse Ox 97 04/08/18 13:22 Constitutional: Present: Alert, Oriented x3, Cooperative, No distress ENT Exam: Present: hearing grossly normal, pharynx normal Eye Exam: bilateral eye: normal inspection, PERRL, EOMI Neck: Present: non-tender, full range of motion Back Exam: Present: normal inspection, no CVA tenderness Respiratory: Present: chest non-tender, lungs clear Cardiovascular/Chest: Present: normal peripheral pulses, regular rate, rhythm Abdomen: Present: Normal bowel sounds, soft, nontender, nondistended /Rectal: Present: Exam deferred Neurologic: Present: consulting services associate II-XII nml as tested, no motor/sensory deficits, alert, oriented x 3 Appearance: Present: disheveled, impaired insight Eye contact: Present: cooperative, good eye contact, decreased rate of speech Thoughts: Present: no apparent hallucination Diagnostic Studies: Laboratory Results WBC 9.7 K/mm3 (4.0-10.5) 04/07/18 22:40 RBC 5.23 M/mm3 (4.7-6.0) 04/07/18 22:40 Hgb 14.0 gm/dL (13.5-18.0) 04/07/18 22:40 Hct 42.9 % (42.0-52.0) 04/07/18 22:40 MCV 82.0 fl (78-100) 04/07/18 22:40 MCH 26.8 pg (27-31) L 04/07/18 22:40 MCHC 32.6 g/dl (32-36) 04/07/18 22:40 RDW 14.3 % (11.5-14.0) H 04/07/18 22:40 Plt Count 327 K/mm3 (150-450) 04/07/18 22:40 MPV 9.2 fl (8-11.3) 04/07/18 22:40 Immature Gran % (Auto) 0.40 % (0.001-0.429) 04/07/18 22:40 Immature Gran # (Auto) 0.04 K/mm3 (0.000-0.0310) H 04/07/18 22:40 Neutrophils % 50.0 % (42-75.0) 04/07/18 22:40 Lymphocytes % 39.5 % (20-51) 04/07/18 22:40 Monocytes % 8.4 % (0.0-9) 04/07/18 22:40 Eosinophils % 1.0 % (0.0-3.0) 04/07/18 22:40 Basophils % 0.7 % (0.0-1.0) 04/07/18 22:40 Nucleated RBC % 0.0 k/mm3 (0-1) 04/07/18 22:40 Neutrophils # 4.8 K/mm3 (1.3-6.0) 04/07/18 22:40 Lymphocytes # 3.81 k/mm3 (1.5-3.5) H 04/07/18 22:40 Monocytes # 0.8 k/mm3 (0.0-1.0) 04/07/18 22:40 Eosinophils # 0.1 k/mm3 (0.0-0.7) 04/07/18 22:40 Absolute Basophils 0.1 k/mm3 (0.0-0.1) 04/07/18 22:40 Sodium 137 mmol/L (132-142) 04/07/18 22:40 Plasma Sodium 137 mmol/L (130-142) 04/07/18 22:40 Potassium 4.4 mmol/L (3.4-4.6) D 04/07/18 22:40 Chloride 102 mmol/L (97-106) 04/07/18 22:40 Carbon Dioxide 26.8 mmol/L (24-32.6) 04/07/18 22:40 Anion Gap 12.6 mmol/L (6.8-13.8) 04/07/18 22:40 BUN 12 mg/dL (6-23) 04/07/18 22:40 Creatinine 1.63 mg/dL (0.4-1.4) H D 04/07/18 22:40 Est GFR (Non-Af Amer) 52 mL/min (60-130) L D 04/07/18 22:40 BUN/Creatinine Ratio 7.4 (9.0-21.6) L 04/07/18 22:40 Random Glucose 79 mg/dL (70-110) 04/07/18 22:40 Calcium 8.5 mg/dL (7.9-10.9) 04/07/18 22:40 Calcium Adj for Albumin 8.4 mg/dL (8.4-10.2) 04/07/18 22:40 Total Bilirubin 0.2 mg/dL (0.0-1.1) 04/07/18 22:40 AST 28 U/L (0-48) 04/07/18 22:40 ALT 30 U/L (19-67) 04/07/18 22:40 Alkaline Phosphatase 101 U/L (50-170) 04/07/18 22:40 Total Protein 7.5 gm/dL (6.2-8.2) 04/07/18 22:40 Albumin 3.7 gm/dl (3.4-5.0) 04/07/18 22:40 Urine Color Yellow 04/07/18 22:40 Urine Appearance Clear (CLEAR) 04/07/18 22:40 Urine pH 6.0 pH (5.0-7.0) 04/07/18 22:40 Ur Specific [place] >=1.030 SP.GR. (1.005-1.030) 04/07/18 22:40 Urine Protein 30 mg/dL (NEGATIVE) H 04/07/18 22:40 Urine Glucose (UA) Negative mg/dL (NEGATIVE) 04/07/18 22:40 Urine Ketones 5 mg/dL (NEGATIVE) 04/07/18 22:40 Urine Blood Negative /ul (NEGATIVE) 04/07/18 22:40 Urine Nitrate Negative (NEGATIVE) 04/07/18 22:40 Urine Bilirubin Negative mg/dl (NEGATIVE) 04/07/18 22:40 Prot Sulfosalicylic Acd 1+ mg/dL (0) 04/07/18 22:40 Urine Urobilinogen Normal EU/dl (NORMAL) 04/07/18 22:40 Ur Leukocyte Esterase Negative /ul (NEGATIVE) 04/07/18 22:40 Urine RBC None seen /hpf (0-5) 04/07/18 22:40 Urine WBC None seen /hpf (0-5) 04/07/18 22:40 Ur Epithelial Cells None seen /hpf (0-5) 04/07/18 22:40 Urine Bacteria None seen (NONE) 04/07/18 22:40 Hyaline Casts 0-5 /LPF (NONE) H 04/07/18 22:40 Urine Culture Comments No culture indicated 04/07/18 22:40 Salicylates 3.0 mg/dL (2.8-20.0) 04/07/18 22:40 Urine Opiates Screen Negative (NEGATIVE) 04/07/18 22:22 Acetaminophen Less than 0.2 mcg/mL (10.0-30.0) L 04/07/18 22:40 Barbiturate Screen Negative (NEGATIVE) 04/07/18 22:22 Ur Phencyclidine Scrn Negative (NEGATIVE) 04/07/18 22:22 Urine Amphetamine Negative (NEGATIVE) 04/07/18 22:22 U Benzodiazepines Scrn Positive (NEGATIVE) H 04/07/18 22:22 Urine Cocaine Screen Negative (NEGATIVE) 04/07/18 22:22 Urine Marijuana (THC) Negative (NEGATIVE) 04/07/18 22:22 Ethyl Alcohol 96.0 mg/dL (0.0-10.0) H 04/07/18 22:40 Assessment/Plan - Assessment/Plan (1) Suicide attempt Assessment: Patient was placed in the SCU for monitoring for seizure activity or respiratory distress. His vital signs will be checked q 1 hour. IV fluids started for acute kidney injury. Other labs stable. Patient A7O x 3 at time of initial interview Problem: Acute
== END 2018-04-08 13:45 | disposition home or self-care (01) ==
LOC: ER 22:09 → SCU 22:09
PROVIDERS: ADMIT Family Medicine; ATTEND Family Medicine
DX: T50.901A Poisoning by unspecified drugs, medicaments and biological substances, accidental (unintentional), initial encounter
CPT/HCPCS: 36415; 71010; 71045; 80053; 80307; 80320; 80329; 81001; 85025; 87081; 93005; 94760; 96374; 99283; G0378; G0479; G0480; G0481; J2405